=== PATIENT | female | born 2005 | race Caucasian/White ===

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

== ENCOUNTER → 2024-06-16 | Outpatient (CLI) | payer OTHER, SELFPAY ==
[2024-06-16 18:51] LABS: Ferritin 81 ng/mL (22-378)
[2024-06-16 20:02] LABS: PTHIN 28 pg/mL (11-61)
[2024-06-17 17:14] LABS: Calcium 9.6 mg/dL (7.6-11.0)
[2024-06-18 04:07] LABS: Thyroid Peroxidase AB 36 IU/mL (0-34)
== END | disposition home or self-care (01) ==
PROVIDERS: PCP Pediatrics; Referring Provider Dermatology Pediatric Dermatology; Visit Provider Dermatology Pediatric Dermatology
DX: L67.8 Other hair color and hair shaft abnormalities (principal); D89.89 Other specified disorders involving the immune mechanism, not elsewhere classified
CPT/HCPCS: 36415; 82310; 82728; 83970; 84439; 84443; 84481; 86376

== ENCOUNTER → 2024-09-29 | Outpatient (CLI) | payer OTHER, SELFPAY ==
[2024-09-29 15:27] LABS: Hematocrit 43.8 % (37-47); Hemoglobin 14.5 g/dL (12.0-15.0); Immature Granulocytes Count 0.010 X10^3/uL (0.0-0.0); Mean Corp Hgb Conc 33.1 g/dL (32-36); Mean Corpuscular Volume 93.6 fL (81-99); Mean Platelet Vol. 10.7 fl (6.2-12.0); NRBC Flagged by Analyzer 0 % (0-5); Platelet Count 208 K/mm3 (150-450); RBC Distribution Width CV 12.5 % (11.6-14.6); RBC Distribution Width SD 43.3 fl (35.1-43.9); Red Blood Count 4.68 M/mm3 (4.2-5.4); White Blood Count 5.4 K/mm3 (4.4-11.0)
[2024-09-29 16:15] LABS: AST(SGOT) 14 U/L (<=31); Alanine Aminotransfer ALT/SGPT 12 U/L (<=34); Albumin, Serum 4.6 g/dL (3.5-5.0); Alkaline Phosphatase 29 U/L (35-104); Anion Gap 12 (5-15); BUN 11 mg/dL (4-19); BUN/Creat Ratio 14.0 RATIO (10-20); Calcium,Total 9.5 mg/dL (7.6-11.0); Carbon Dioxide 24.9 mmol/L (21.0-32.0); Chloride 104 mmol/L (98-108); Ferritin 79 ng/mL (22-378); Globulin 2.9 g/dL (2.2-4.2); Glucose 85 mg/dL (70-99); Iron 102 ug/dL (50-170); Iron Binding Capacity,Total 303 ug/dL (250-450); Iron Binding Capacity,Unsat 201 ug/dL (228-428); Potassium 3.7 mmol/L (3.3-5.1); T3 Total - Triiodothyronine 0.90 ng/mL (0.80-2.00)
[2024-09-29 18:28] LABS: Color, Urine Yellow (Yellow); Glucose, Dipstick Normal (Normal); Ketone-Dipstick Negative (Negative); Leukocyte Esterase-Dipstick Negative /ul (Negative); Nitrite-Dipstick Negative (Negative); Occult Blood-Urine Negative /ul (Negative); Protein-Dipstick Negative (Negative); Specific Gravity, Urine 1.015 (1.002-1.030); Urine Bilirubin Dipstick Negative (Negative)
[2024-09-29 19:15] LABS: Creatinine, Urine (random) 183.00 mg/dL (28.00-217.00); Microalbumin,Random Urine < 12.0 mg/L (<20 mg/L)
[2024-10-02 16:09] LABS: Thyroid Stim Immunoglob <0.10 IU/L (0.00-0.55)
== END | disposition home or self-care (01) ==
LOC: MFPLAB 13:35
PROVIDERS: PCP Pediatrics; Visit Provider Family Medicine
DX: Z13.1 Encounter for screening for diabetes mellitus (principal); R53.83 Other fatigue; R76.8 Other specified abnormal immunological findings in serum
CPT/HCPCS: 36415; 80053; 81002; 82043; 82570; 82728; 83540; 83550; 84439; 84443; 84445; 84480; 85025

== ENCOUNTER → 2025-01-21 | Outpatient (CLI) | payer OTHER, SELFPAY ==
--- OUTSIDE RECORDS SUMMARY | 2025-01-21 16:46 | XMS RPT_ITS | CCD ---
Author Organization [facility] Care Team Providers Care Dental Intern Name Role Phone Andrew Lloyd MD Primary Care Provider [phone] Moo CHOUDHURY, Dr. Bowens Primary Care Provider Aj CHOUDHURY, Dr. Wolf Attending Provider Aj CHOUDHURY, Dr. Wolf Referring Provider [phone] Moo CHOUDHURY, Dr. Bowens Referring Provider Jacqueline CHOCOLATE TEMPERER-CAziza Attending Provider [phone] Apurva CHOUDHURY, Warren Attending Provider Aziza Phillips Attending Unavailable Andrew Lloyd Referring Unavailable Andrew Lloyd Primary Care Unavailable Andrew Lloyd Primary Care Unavailable Warren Mixon Attending Unavailable Maryann Rocha Referring Unavailable Maryann Rocha Attending Unavailable Andrew Lloyd Primary Care Unavailable Medications Current Medications Medication Drug Class(es) Dates Sig (Normalized) Sig (Original) Keo (Nk) (2 sources) Start: 07-24-2024 Keo (Nk) A ctive July 24, 2024 12:00am Completed/Discontinued Medications Medication Drug Class(es) Dates Sig (Normalized) Sig (Original) oseltamivir 75 mg oral capsule (4 sources) Neuraminidase Inhibitor Start: 05-07-2017 End: 05-12-2017 take 1 capsule by mouth twice daily Oseltamivir (Tamiflu) 75 mg capsule Discontinued 75 mg PO TWICE A DAY 10 5 0 May 07, 2017 12:00am May 11, 2017 12:00am May 12, 2017 12:11am Problems Active Problems Problem Classification Problem Date Documented Da te Episodic/Chronic Other screening for suspected conditions (not mental disorders or infectious disease) (1 source) Encounter for screening for diabetes mellitus; Translations: [Encounter for screening for diabetes mellitus] Onset: 10-07-2024 Episodic Other upper respiratory infections (8 sources) Upper respiratory infection; Translations: [Acute upper respiratory infection, unspecified] 05-09-2017 Episodic Past or Other Problems Problem Classification Problem Date Documented Da te Episodic/Chronic Other skin disorders (1 source) Other hair color and hair shaft abnormalities; Translations: [Other hair color and hair shaft abnormalities] Onset: 06-19-2024 Episodic Results Test Name Value Interpretation Reference Range Facility Thyroid Stim Immunoglobon THY STIM IMMUNO <0.10 Normal 0.00-0.55 [facility] Comment on above: Result Comment: Perf ormed at: BN - [facility] [address] [id number] [employer]: Humberto Faye MD, Phone: [phone] Performed By: #### L 506.0400, L503.6030, L400.2011, L3400.4700, L500.4050, L501.9520, L501.9187, L502.0250, L503.6550, L100.0100 #### [facility] [address] [place], [address] Absolute lymphocyte countOrd ered By: Warren Mixon on 09-29-2024 Lymphocytes Auto (Unsp spec) [#/Vol] 1.96 10*3/uL 0.83-4.51 [facility] Absolute neutrophil countOrd ered By: Warren Mixon on 09-29-2024 Neutrophils (Bld) [#/Vol] 2.9 10*3/uL 2.0-7.7 [facility] Anion gap in Serum or Plasma Ordered By: Warren Mixon on 09-29-2024 Anion gap [Moles/Vol] 12 mmol/L 5-15 [facility] Automated lymphocyte count a s percentage of total leukocytesOrdered By: Warren Mixon on 09-29-2024 Lymphocytes/100 WBC Auto (Unsp spec) 36.1 % - [facility] BUN/creatinine ratioOrdered By: Warren Mixon on 09-29-2024 Urea nitrogen/Creatinine [Mass ratio] 14.0 mg/mg 10-20 [facility] Basophil percentageOrdered B y: Warren Mixon on 09-29-2024 Basophils/100 WBC (Bld) 0.9 % 0-1 [facility] Bilirubin Test strip Ql (U)O rdered By: Warren Mixon on 09-29-2024 Bilirubin Ql (U) Negative Negative [facility] Bilirubin, totalOrdered By: Warren Mixon on 09-29-2024 Bilirubin [Mass/Vol] 0.59 mg/dL 0.00-1.30 [place] CBC W/Diff, Automatedon Absolute Lymph 1.96 X10 3/uL Normal 0.83-4.51 [facility] Comment on above: Performed By: #### L 506.0400, L503.6030, L400.2010, L3400.4700, L500.4050, L501.9520, L501.9187, L502.0250, L503.6550, L100.0100 #### [facility] [address] [place], [address] Absolute Neut 2.9 X10 3/uL Normal 2.0-7.7 [facility] Comment on above: Performed By: #### L 506.0400, L503.6030, L400.2010, L3400.4700, L500.4050, L501.9520, L501.9187, L502.0250, L503.6550, L100.0100 #### [facility] [address] [place], [address] Basophils/100 WBC (Bld) 0.9 % Normal 0-1 [facility] Comment on above: Performed By: #### L 506.0400, L503.6030, L400.2010, L3400.4700, L500.4050, L501.9520, L501.9187, L502.0250, L503.6550, L100.0100 #### [facility] [address] [place], [address] Eosinophils/100 WBC (Bld) 0.7 % Normal 0-5 [facility] Comment on above: Performed By: #### L 506.0400, L503.6030, L400.2011, L3400.4700, L500.4050, L501.9520, L501.9187, L502.0250, L503.6550, L100.0100 #### [facility] [address] [facility] [place], [address] Erythrocyte distribution width (RBC) [Ratio] 12.5 % Normal 11.6-14.6 [facility] Comment on above: Performed By: #### L 506.0400, L503.6030, L400.2010, L3400.4700, L500.4050, L501.9520, L501.9187, L502.0250, L503.6550, L100.0100 #### [facility] [address] [place], [place], [phone] Hematocrit (Bld) [Volume fraction] 43.8 % Normal 37-47 [facility] Comment on above: Performed By: #### L 506.0400, L503.6030, L400.2010, L3400.4700, L500.4050, L501.9520, L501.9187, L502.0250, L503.6550, L100.0100 #### [facility] [address] [place], [address] Hemoglobin (Bld) [Mass/Vol] 14.5 g/dL Normal 12.0-15.0 [facility] Comment on above: Performed By: #### L 506.0400, L503.6030, L400.2010, L3400.4700, L500.4050, L501.9520, L501.9187, L502.0250, L503.6550, L100.0100 #### [facility] [address] [place], [address] IG% 0.200 Normal 0.0-0.9 [facility] Comment on above: Result Comment: IG% - Immature Granulocytes (promyelocytes, myelocytes and metamyelocytes) > 1% indicates that a LEFT SHIFT is Present. Performed By: #### L 506.0400, L503.6030, L400.2011, L3400.4700, L500.4050, L501.9520, L501.9187, L502.0250, L503.6550, L100.0100 #### [facility] [address] [place], [address] Lymphocytes/100 WBC (Bld) 36.1 % Normal 19-41 [facility] Comment on above: Performed By: #### L 506.0400, L503.6030, L400.2010, L3400.4700, L500.4050, L501.9520, L501.9187, L502.0250, L503.6550, L100.0100 #### [facility] [address] [place], [address] MCH (RBC) [Entitic mass] 31.0 pg Normal 27.0-32.0 [facility] Comment on above: Performed By: #### L 506.0400, L503.6030, L400.2010, L3400.4700, L500.4050, L501.9520, L501.9187, L502.0250, L503.6550, L100.0100 #### [facility] [address] [place], [address] MCHC (RBC) [Mass/Vol] 33.1 g/dL Normal 32-36 [facility] Comment on above: Performed By: #### L 506.0400, L503.6030, L400.2010, L3400.4700, L500.4050, L501.9520, L501.9187, L502.0250, L503.6550, L100.0100 #### [facility] [address] [place], [address] MCV (RBC) [Entitic vol] 93.6 fL Normal 81-99 [facility] Comment on above: Performed By: #### L 506.0400, L503.6030, L400.2010, L3400.4700, L500.4050, L501.9520, L501.9187, L502.0250, L503.6550, L100.0100 #### [facility] [address] [place], [address] Monocytes/100 WBC (Bld) 8.8 % Normal 0-10 [facility] Comment on above: Performed By: #### L 506.0400, L503.6030, L400.2010, L3400.4700, L500.4050, L501.9520, L501.9187, L502.0250, L503.6550, L100.0100 #### [facility] [address] [place], [address] Neutrophils/100 WBC (Bld) 53.3 % Normal 47-70 [facility] Comment on above: Performed By: #### L 506.0400, L503.6030, L400.2010, L3400.4700, L500.4050, L501.9520, L501.9187, L502.0250, L503.6550, L100.0100 #### [facility] [address] [place], [address] Nucleated RBC (Bld) [#/Vol] 0 10*3/uL Normal 0-5 [facility] Comment on above: Performed By: #### L 506.0400, L503.6030, L4.2010, L3400.4700, L500.4050, L501.9520, L501.9187, L502.0250, L503.6550, L100.0100 #### [facility] [address] [place], [address] Platelet mean volume (Bld) [Entitic vol] 10.7 fL Normal 6.2-12.0 [facility] Comment on above: Performed By: #### L 506.0400, L503.6030, L400.2011, L3400.4700, L500.4050, L501.9520, L501.9187, L502.0250, L503.6550, L100.0100 #### [facility] [address] [place], [address] Platelets (Bld) [#/Vol] 208 10*3/uL Normal 150-450 [facility] Comment on above: Performed By: #### L 506.0400, L503.6030, L400.2010, L3400.4700, L500.4050, L501.9520, L501.9187, L502.0250, L503.6550, L100.0100 #### [facility] [address] [place], [address] RBC (Bld) [#/Vol] 4.68 10*6/uL Normal 4.2-5.4 [facility] Comment on above: Performed By: #### L 506.0400, L503.6030, L400.2010, L3400.4700, L500.4050, L501.9520, L501.9187, L502.0250, L503.6550, L100.0100 #### [facility] [address] [place], [address] RDW SD 43.3 fl Normal 35.1-43.9 [facility] Comment on above: Performed By: #### L 506.0400, L503.6030, L400.2010, L3400.4700, L500.4050, L501.9520, L501.9187, L502.0250, L503.6550, L100.0100 #### [facility] [address] [place], [address] WBC (Bld) [#/Vol] 5.4 10*3/uL Normal 4.4-11.0 [facility] Comment on above: Performed By: #### L 506.0400, L503.6030, L400.2010, L3400.4700, L500.4050, L501.9520, L501.9187, L502.0250, L503.6550, L100.0100 #### [facility] [address] [place], [address] Carbon dioxide, total [Moles /volume] in Central venous bloodOrdered By: Warren Mixon on 09-29-2024 CO2 [Moles/Vol] 24.9 mmol/L 21.0-32.0 [facility] Chloride assayOrdered By: Jimbo Mixon on 09-29-2024 Chloride [Moles/Vol] 104 mmol/L 98-108 [place] [facility] Metabolic Prof ilon 09-29-2024 Albumin [Mass/Vol] 4.6 g/dL Normal 3.5-5.0 [facility] Comment on above: Performed By: #### L 506.0400, L503.6030, L4.2010, L3400.4700, L500.4050, L501.9520, L501.9187, L502.0250, L503.6550, L100.0100 #### [facility] [address] [place], [address] Albumin/Globulin [Mass ratio] 1.6 {ratio} Normal 0.9-2.4 [facility] Comment on above: Performed By: #### L 506.0400, L503.6030, L400.2010, L3400.4700, L500.4050, L501.9520, L501.9187, L502.0250, L503.6550, L100.0100 #### [facility] [address] [place], [address] ALK PHOS 29 U/L Low 35-104 [facility] Comment on above: Performed By: #### L 506.0400, L503.6030, L4, L3400.4700, L500.4050, L501.9520, L501.9187, L502.0250, L503.6550, L100.0100 #### [facility] [address] [place], [place], [phone] ALT [Catalytic activity/Vol] 12 U/L Normal <=34 [facility] Comment on above: Performed By: #### L 506.0400, L503.6030, L400.2010, L3400.4700, L500.4050, L501.9520, L501.9187, L502.0250, L503.6550, L100.0100 #### [facility] [address] [place], [address] AST [Catalytic activity/Vol] 14 U/L Normal <=31 [facility] Comment on above: Performed By: #### L 506.0400, L503.6030, L4, L3400.4700, L500.4050, L501.9520, L501.9187, L502.0250, L503.6550, L100.0100 #### [facility] [address] [place], [place], [phone] Bilirubin [Mass/Vol] 0.59 mg/dL Normal 0.00-1.30 [place] Comment on above: Performed By: #### L 506.0400, L503.6030, L4, L3400.4700, L500.4050, L501.9520, L501.9187, L502.0250, L503.6550, L100.0100 #### [facility] [address] [place], [address] BUN/CRE 14.0 RATIO Normal 10-20 [facility] Comment on above: Performed By: #### L 506.0400, L503.6030, L4, L3400.4700, L500.4050, L501.9520, L501.9187, L502.0250, L503.6550, L100.0100 #### [facility] [address] [place], [address] Calcium [Mass/Vol] 9.5 mg/dL Normal 7.6-11.0 [facility] Comment on above: Performed By: #### L 506.0400, L503.6030, L400.2010, L3400.4700, L500.4050, L501.9520, L501.9187, L502.0250, L503.6550, L100.0100 #### [facility] [address] [place], [address] Chloride [Moles/Vol] 104 mmol/L Normal 98-108 [place] Comment on above: Performed By: #### L 506.0400, L503.6030, L4, L3400.4700, L500.4050, L501.9520, L501.9187, L502.0250, L503.6550, L100.0100 #### [facility] [address] [place], [address] CO2 [Moles/Vol] 24.9 mmol/L Normal 21.0-32.0 [facility] Comment on above: Performed By: #### L 506.0400, L503.6030, L4.2010, L3400.4700, L500.4050, L501.9520, L501.9187, L502.0250, L503.6550, L100.0100 #### [facility] [address] [place], [address] Creatinine [Mass/Vol] 0.81 mg/dL Normal 0.70-1.20 [facility] Comment on above: Performed By: #### L 506.0400, L503.6030, L4.2010, L3400.4700, L500.4050, L501.9520, L501.9187, L502.0250, L503.6550, L100.0100 #### [facility] [address] [place], [address] GAP 12 Normal 5-15 [facility] Comment on above: Performed By: #### L 506.0400, L503.6030, L4.2010, L3400.4700, L500.4050, L501.9520, L501.9187, L502.0250, L503.6550, L100.0100 #### [facility] [address] [place], [address] GFR/1.73 sq M.predicted among non-blacks MDRD (S/P/Bld) [Vol rate/Area] 107 mL/min/{1.73_m2} Normal >60 [facility] Comment on above: Result Comment: mL/m in/1.73m2 CKD-EPI Creatinine Equation (2020) Performed By: #### L 506.0400, L503.6030, L4, L3400.4700, L500.4050, L501.9520, L501.9187, L502.0250, L503.6550, L100.0100 #### [facility] [address] [place], [address] Globulin (S) [Mass/Vol] 2.9 g/dL Normal 2.2-4.2 [facility] Comment on above: Performed By: #### L 506.0400, L503.6030, L4.2010, L3400.4700, L500.4050, L501.9520, L501.9187, L502.0250, L503.6550, L100.0100 #### [facility] [address] [place], [address] Glucose [Mass/Vol] 85 mg/dL Normal 70-99 [facility] Comment on above: Performed By: #### L 506.0400, L503.6030, L4, L3400.4700, L500.4050, L501.9520, L501.9187, L502.0250, L503.6550, L100.0100 #### [facility] [address] [place], [address] Potassium [Moles/Vol] 3.7 mmol/L Normal 3.3-5.1 [facility] Comment on above: Performed By: #### L 506.0400, L503.6030, L400.2010, L3400.4700, L500.4050, L501.9520, L501.9187, L502.0250, L503.6550, L100.0100 #### [facility] [address] [place], [address] Sodium [Moles/Vol] 140 mmol/L Normal 133-145 [facility] Comment on above: Performed By: #### L 506.0400, L503.6030, L4.2010, L3400.4700, L500.4050, L501.9520, L501.9187, L502.0250, L503.6550, L100.0100 #### [facility] [address] [place], [address] T PROT 7.4 g/dL Normal 5.9-8.4 [facility] Comment on above: Performed By: #### L 506.0400, L503.6030, L4.2010, L3400.4700, L500.4050, L501.9520, L501.9187, L502.0250, L503.6550, L100.0100 #### [facility] [address] [facility] [place], [address] Urea nitrogen [Mass/Vol] 11 mg/dL Normal 4-19 [facility] Comment on above: Performed By: #### L 506.0400, L503.6030, L4, L3400.4700, L500.4050, L501.9520, L501.9187, L502.0250, L503.6550, L100.0100 #### [facility] [address] [place], [address] Eosinophil percentageOrdered By: Warren Apurva on 09-29-2024 Eosinophils/100 WBC (Bld) 0.7 % 0-5 [facility] Erythrocyte distribution wid th ratioOrdered By: Warren Mixon on 09-29-2024 Erythrocyte distribution width (RBC) [Ratio] 12.5 % 11.6-14.6 [facility] Erythrocyte distribution wid th standard deviationOrdered By: [facility] Apurva on 09-29-2024 Erythrocyte distribution width (RBC) [Ratio] 43.3 fl 35.1-43.9 [facility] Ferritinon 09-29-2024 Ferritin [Mass/Vol] 79 ng/mL Normal 22-378 [facility] Comment on above: Performed By: #### L 506.0400, L503.6030, L400.2011, L3400.4700, L500.4050, L501.9520, L501.9187, L502.0250, L503.6550, L100.0100 #### [facility] [address] [place], [place], [id number] Glomerular filtration rate ( GFR) estimation/1.73 sq m using serum, plasma, or whole bOrdered By: Warren Mixon on 09-29-2024 GFR/1.73 sq M.predicted among non-blacks MDRD (S/P/Bld) [Vol rate/Area] 107 mL/min/{1.73_m2} >60 [facility] Comment on above: mL/min/1.73m2 CKD-EP I Creatinine Equation (2020) Hematocrit Auto (Bld) [Volum e fraction]Ordered By: Warren Mixon on 09-29-2024 Hematocrit (Bld) [Volume fraction] 43.8 % 37-47 [facility] Hemoglobin measurementOrdere d By: Warren Mixon on 09-29-2024 Hemoglobin (Bld) [Mass/Vol] 14.5 g/dL 12.0-15.0 [facility] Immature granulocytes/100 WB C Auto (Bld)Ordered By: Warren Mixon on 09-29-2024 Immature granulocytes/100 WBC (Bld) 0.200 % 0.0-0.9 [facility] Comment on above: IG% - Immature Granu locytes (promyelocytes, myelocytes and metamyelocytes) > 1% indicates that a LEFT SHIFT is Present. Iron measurement (mass/mass) Ordered By: Warren Mixon on 09-29-2024 Iron (Unsp spec) [Mass/Mass] 102 ug/dL 50-170 [facility] Iron+Iron Binding Capacityon 09-29-2024 Iron [Mass/Vol] 102 ug/dL Normal 50-170 [facility] Comment on above: Performed By: #### L 506.0400, L503.6030, L400.2010, L3400.4700, L500.4050, L501.9520, L501.9187, L502.0250, L503.6550, L100.0100 #### [facility] [address] [place], [address] IRON SATURATION 34.0 Normal 13-59 [facility] Comment on above: Performed By: #### L 506.0400, L503.6030, L400.2010, L3400.4700, L500.4050, L501.9520, L501.9187, L502.0250, L503.6550, L100.0100 #### [facility] [address] [place], [address] TIBC 303 ug/dL Normal 250-450 [facility] Comment on above: Performed By: #### L 506.0400, L503.6030, L400.2010, L3400.4700, L500.4050, L501.9520, L501.9187, L502.0250, L503.6550, L100.0100 #### [facility] [address] [place], [address] UIBC 201 ug/dL Low 228-428 [facility] Comment on above: Performed By: #### L 506.0400, L503.6030, L400.2010, L3400.4700, L500.4050, L501.9520, L501.9187, L502.0250, L503.6550, L100.0100 #### [facility] [address] [place], [address] Ketones Test strip Ql (U)Ord ered By: Warren Mixon on 09-29-2024 Ketones Ql (U) Negative Negative [facility] L501.9187on 09-29-2024 T3 Total 0.90 ng/mL Normal 0.80-2.00 [facility] Comment on above: Performed By: #### L 506.0400, L503.6030, L400.2010, L3400.4700, L500.4050, L501.9520, L501.9187, L502.0250, L503.6550, L100.0100 #### [facility] [address] [facility] [place], [address] Laboratory - Chemistry and C hemistry - challengeOrdered By: Warren Mixon on 09-29-2024 AST [Catalytic activity/Vol] 14 U/L <32 [facility] MCV (mean corpuscular volume ) determinationOrdered By: Warren Mixon on 09-29-2024 MCV (RBC) [Entitic vol] 93.6 fL 81-99 [facility] Mean corpuscular hemoglobin (MCH) determinationOrdered By: Warren Mixon on 09-29-2024 MCH (RBC) [Entitic mass] 31.0 pg 27.0-32.0 [facility] Mean corpuscular hemoglobin concentration (MCHC) determinationOrdered By: Warren Mixon on 09-29-2024 MCHC (RBC) [Mass/Vol] 33.1 g/dL 32-36 [facility] Mean platelet volume determi nationOrdered By: Warren Mixon on 09-29-2024 Platelet mean volume (Bld) [Entitic vol] 10.7 fL 6.2-12.0 [facility] Microalb:Creat Ratio,Random URon 09-29-2024 Creatinine [Mass/Vol] 183.00 mg/dL Normal 28.00-217.00 [facility] Comment on above: Performed By: #### L 506.0400, L503.6030, L400.2010, L3400.4700, L500.4050, L501.9520, L501.9187, L502.0250, L503.6550, L100.0100 #### [facility] [address] [facility] [place], [place], [id number] MALB:CREAT UNABLE TO CALCULATE Normal <30 mg/g CRE [facility] Comment on above: Performed By: #### L 506.0400, L503.6030, L400.2010, L3400.4700, L500.4050, L501.9520, L501.9187, L502.0250, L503.6550, L100.0100 #### [facility] [address] [facility] [place], [place], [id number] MICROALBUMIN,UR < 12.0 Normal <20 mg/L [facility] Comment on above: Performed By: #### L 506.0400, L503.6030, L400.2010, L3400.4700, L500.4050, L501.9520, L501.9187, L502.0250, L503.6550, L100.0100 #### [facility] [address] [facility] [place], [place], [id number] Microalbumin/creat ratio urO rdered By: Warren Mixon on 09-29-2024 Urine microalbumin/creatinine ratio measurement UNABLE TO CALCULATE mg/g CRE <30 [facility] Monocyte percentageOrdered B y: Warren Mixon on 09-29-2024 Monocytes/100 WBC (Bld) 8.8 % 0-10 [facility] Neutrophil percentageOrdered By: Warren Mixon on 09-29-2024 Neutrophils/100 WBC (Bld) 53.3 % 47-70 [facility] Nitrite Test strip Ql (U)Ord ered By: Warren Mixon on 09-29-2024 Nitrite Ql (U) Negative Negative [facility] No Panel InformationOrdered By: Warren Mixon on 09-29-2024 Unsaturated Iron Binding Capacity 201 ug/dL Low 228-428 [facility] Nucleated red blood cell per centageOrdered By: Warren Mixon on 09-29-2024 Nucleated RBC/100 WBC (Bld) [Ratio] 0 % 0-5 [facility] Platelet countOrdered By: Jimbo Mixon on 09-29-2024 Platelets (Bld) [#/Vol] 208 10*3/uL 150-450 [facility] Potassium measurement (mass/ volume)Ordered By: Warren Mixon on 09-29-2024 Potassium (Unsp spec) [Mass/Vol] 3.7 mmol/L 3.3-5.1 [facility] Protein Test strip Ql (U)Ord ered By: Warren Mixon on 09-29-2024 Protein Ql (U) Negative Negative [facility] RBC Auto (Bld) [#/Vol]Ordere d By: Warren Mixon on 09-29-2024 RBC (Bld) [#/Vol] 4.68 10*6/uL 4.2-5.4 [facility] Random urine creatinine rolly urement (mass/volume)Ordered By: Warren Mixon on 09-29-2024 Creatinine Unsp time (U) [Mass/Vol] 183.00 mg/dL 28.00-217.00 [facility] Serum creatinine measurement (mass/volume)Ordered By: Warren Mixon on 09-29-2024 Creatinine [Mass/Vol] 0.81 mg/dL 0.70-1.20 [facility] Serum globulin measurementOr dered By: Warren Mixon on 09-29-2024 Globulin (S) [Mass/Vol] 2.9 g/dL 2.2-4.2 [facility] Serum glucose measurement (m ass/volume)Ordered By: Warren Mixon on 09-29-2024 Glucose [Mass/Vol] 85 mg/dL 70-99 [facility] Serum or plasma alanine urias otransferase (ALT) measurementOrdered By: Warren Mixon on 09-29-2024 ALT [Catalytic activity/Vol] 12 U/L <35 [facility] Serum or plasma albumin rolly urement (mass/volume)Ordered By: Warren Mixon on 09-29-2024 Albumin [Mass/Vol] 4.6 g/dL 3.5-5.0 [facility] Serum or plasma albumin/glob ulin mass ratioOrdered By: Warren Mixon on 09-29-2024 Albumin/Globulin [Mass ratio] 1.6 {ratio} 0.9-2.4 [facility] Serum or plasma alkaline donovan sphatase measurementOrdered By: Warren Mixon on 09-29-2024 ALP [Catalytic activity/Vol] 29 U/L Low 35-104 [facility] Serum or plasma calcium rolly urement (mass/volume)Ordered By: Warren Mixon on 09-29-2024 Calcium [Mass/Vol] 9.5 mg/dL 7.6-11.0 [facility] Serum or plasma ferritin kaelyn surement (mass/volume)Ordered By: Warren Mixon on 09-29-2024 Ferritin [Mass/Vol] 79 ng/mL 22-378 [facility] Serum or plasma iron saturat ion measurement (mass fraction)Ordered By: Warren Mixon on 09-29-2024 Iron saturation [Mass fraction] 34.0 % 13-59 [facility] Serum or plasma triiodothyro nine (T3) measurement (mass/volume)Ordered By: Warren Mixon on 09-29-2024 T3 [Mass/Vol] 0.90 ng/mL 0.80-2.00 [facility] Serum or plasma urea nitroge n measurement (mass/volume)Ordered By: Warren Mixon on 09-29-2024 Urea nitrogen [Mass/Vol] 11 mg/dL 4-19 [facility] Sodium levelOrdered By: Carmelita Mixon on 09-29-2024 Sodium [Moles/Vol] 140 mmol/L 133-145 [facility] T4 Free Directon 09-29-2024 T4 FREE DIRECT 1.10 ng/dL Normal 0.76-1.46 [facility] Comment on above: Order Comment: N Performed By: #### L 506.0400, L503.6030, L400.2010, L3400.4700, L500.4050, L501.9520, L501.9187, L502.0250, L503.6550, L100.0100 #### [facility] [address] [place], [address] T4 freeOrdered By: Warren harrison on 09-29-2024 Free T4 [Mass/Vol] 1.10 ng/dL 0.76-1.46 [facility] TSH DL <= 0.005 mIU/L QnOrde red By: Warren Mixon on 09-29-2024 TSH Qn 0.631 uIU/mL 0.300-4.200 [facility] Thyroid Stim Hormone (TSH)on 09-29-2024 TSH 0.631 uIU/mL Normal 0.300-4.200 [facility] Comment on above: Performed By: #### L 506.0400, L503.6030, L400, L3400.4700, L500.4050, L501.9520, L501.9187, L502.0250, L503.6550, L100.0100 #### [facility] [address] [place], [address] Thyroid stimulating immunogl obulins detectionOrdered By: Warren Mixon on 09-29-2024 Thyroid stimulating immunoglobulins Ql (S) <0.10 IU/L 0.00-0.55 [facility] Comment on above: Performed at: [address] [id number] Director: Humberto Faye MD, Phone: [phone] Total proteinOrdered By: Devika Mixon on 09-29-2024 Protein [Mass/Vol] 7.4 g/dL 5.9-8.4 [facility] Urinalysis, Routine (Dipstic k)on 09-29-2024 BILIRUBIN URINE Negative Normal Negative [facility] Comment on above: Order Comment: Urine , Random Performed By: #### L 506.0400, L503.6030, L4.2010, L3400.4700, L500.4050, L501.9520, L501.9187, L502.0250, L503.6550, L100.0100 #### [facility] [address] [place], [address] Clarity (U) Clear Normal Clear [facility] Comment on above: Order Comment: Urine , Random Performed By: #### L 506.0400, L503.6030, L400.2010, L3400.4700, L500.4050, L501.9520, L501.9187, L502.0250, L503.6550, L100.0100 #### [facility] [address] [place], [place], [id number] Color (U) Yellow Normal Yellow [facility] Comment on above: Order Comment: Urine , Random Performed By: #### L 506.0400, L503.6030, L4.2010, L3400.4700, L500.4050, L501.9520, L501.9187, L502.0250, L503.6550, L100.0100 #### [facility] [address] [place], [place], [id number] [phone] GLUCOSE, UR Normal Normal Normal [facility] Comment on above: Order Comment: Urine , Random Performed By: #### L 506.0400, L503.6030, L400.2010, L3400.4700, L500.4050, L501.9520, L501.9187, L502.0250, L503.6550, L100.0100 #### [facility] [address] [place], [address] KETONE UR Negative Normal Negative [facility] Comment on above: Order Comment: Urine , Random Performed By: #### L 506.0400, L503.6030, L400.2010, L3400.4700, L500.4050, L501.9520, L501.9187, L502.0250, L503.6550, L100.0100 #### [facility] [address] [place], [address] LEUK ESTERASE Negative Normal Negative [facility] Comment on above: Order Comment: Urine , Random Performed By: #### L 506.0400, L503.6030, L400.2010, L3400.4700, L500.4050, L501.9520, L501.9187, L502.0250, L503.6550, L100.0100 #### [facility] [address] [place], [address] Nitrite Ql (U) Negative Normal Negative [facility] Comment on above: Order Comment: Urine , Random Performed By: #### L 506.0400, L503.6030, L4.2010, L3400.4700, L500.4050, L501.9520, L501.9187, L502.0250, L503.6550, L100.0100 #### [facility] [address] [place], [address] OCCULT BLOOD-UR Negative Normal Negative [facility] Comment on above: Order Comment: Urine , Random Performed By: #### L 506.0400, L503.6030, L4.2010, L3400.4700, L500.4050, L501.9520, L501.9187, L502.0250, L503.6550, L100.0100 #### [facility] [address] [place], [address] pH UR 7.0 Normal 5.0 - 8.0 [facility] Comment on above: Order Comment: Urine , Random Performed By: #### L 506.0400, L503.6030, L4.2010, L3400.4700, L500.4050, L501.9520, L501.9187, L502.0250, L503.6550, L100.0100 #### [facility] [address] [place], [address] PROT DIPSTX Negative Normal Negative [facility] Comment on above: Order Comment: Urine , Random Performed By: #### L 506.0400, L503.6030, L400.2010, L3400.4700, L500.4050, L501.9520, L501.9187, L502.0250, L503.6550, L100.0100 #### [facility] [address] [place], [place], [id number] SP.GR. DIPSTX 1.015 Normal 1.002-1.030 [facility] Comment on above: Order Comment: Urine , Random Performed By: #### L 506.0400, L503.6030, L400.2010, L3400.4700, L500.4050, L501.9520, L501.9187, L502.0250, L503.6550, L100.0100 #### [facility] [address] [place], [place], [id number] UROBILI Normal Normal Normal [facility] Comment on above: Order Comment: Urine , Random Performed By: #### L 506.0400, L503.6030, L4.2010, L3400.4700, L500.4050, L501.9520, L501.9187, L502.0250, L503.6550, L100.0100 #### [facility] [address] [place], [place], [id number] Urine albumin measurement [facility] detection limit of 20 mg/L or less (mass/volume)Ordered By: Warren Mixon on 09-29-2024 Albumin DL <= 20 mg/L (U) [Mass/Vol] < 12.0 mg/L <20 mg/L [facility] Urine clarityOrdered By: Devika Mixon on 09-29-2024 Clarity (U) Clear Clear [facility] Urine color determinationOrd ered By: Warren Mixon on 09-29-2024 Color (U) Yellow Yellow [facility] Urine glucose detectionOrder ed By: Warren Mixon on 09-29-2024 Glucose Ql (U) Normal mg/dl Normal [facility] Urine leukocyte esterase det ection by dipstickOrdered By: Warren Mixon on 09-29-2024 Leukocyte esterase Test strip Ql (U) Negative Negative [facility] Urine pHOrdered By: Warren blakely on 09-29-2024 pH (U) 7.0 [pH] 5.0 - 8.0 [facility] Urine specific gravity measu rementOrdered By: Warren Mixon on 09-29-2024 Specific gravity (U) [Rel density] 1.015 1.002-1.030 [facility] Urine urobilinogen measureme ntOrdered By: Warren Mixon on 09-29-2024 Urobilinogen Ql (U) Normal mg/dl Normal [facility] White blood cell (WBC) count Ordered By: Warren Mixon on 09-29-2024 WBC (Bld) [#/Vol] 5.4 10*3/uL 4.4-11.0 [facility] Warper Tender Office Visit Reporton 07-24-2024 Warper Tender Office Visit Report [facility] [address], [address] [place] [address] OFFICE VISIT Date of Service: 07/24/24 MR#: [id number] Acct: [id number] Name: DARIAN CAMPBELL Rep #: [id number] : 2005 Provider: PABLO Heath Age/Sex: 19/F Location[place] [facility] [place] Status: Signed Intake Vital Signs 05/09/17 09:26 07/24/24 09:45 Height 5 ft 10 in 5 ft 11 in Weight: 183 lb BMI 25.5 BP 104/66 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 sexually active: No Smoking Status: Never smoker alcohol intake: never substance use type: does not use what type of physical activity do you participate in: running, weight training and other details: tennis frequency: daily gisella/gnosticism: Jewish seatbelt use: always do you feel safe at home: Yes additional social history: Single History 0 Elective abortions Hx Para Spontaneous abortions Hx # Term Pregnancies Ectopic pregnancies Hx # Pregnancies Multiple births # of living children HPI Encounter for routine gynecological examination Details: DARIAN CAMBPELL is a 19 year old who presents for annual exam. She reports no issues or concerns. She is here to establish. Not currently or never has been sexually active. She does not use tampons. Currently on menses Last PAP: age 20 History of abnormal PAP: n/a Last mammogram: age 39 History of abnormal mammogram: n/a Colon cancer screening: age 44 Other preventative health care screenings: no PCP currently. Female Reproductive History Last Menstrual Period: 07/21/24 Cycle Length: 21-35 Bleeding Duration: 5 Questions: metorrhagia: No, sexually active: No, dyspareunia: No and PCB: No ROS Const Constitutional: Denies chills, fatigue, fever(s), headache(s) or weight loss Eyes Eyes: Denies change in vision ENT ENT: Denies dizziness Resp Resp: Denies cough GI GI: Denies abdominal pain, constipation or nausea : Denies difficulty voiding, dysuria, hematuria, nipple discharge, pelvic pain, prolapse symptoms, urinary incontinence, vaginal discharge, vaginal dryness, vaginal odor or vaginal pruritus Skin Skin/Breast: Denies alopecia, rash, breast mass, breast pain, breast skin changes or nipple discharge Neuro Neuro: Denies dizziness Psych Psych: Denies anxiety or depression Endo Endo: Denies cold intolerance, excessive sweating or heat intolerance Exam Const General: cooperative, healthy appearing, comfortable, no acute distress, well groomed and well hydrated Nutritional Appearance: well nourished Orientation: alert, awake and oriented x3 HENMT Head: normal to inspection and normocephalic Ears: hearing grossly normal bilaterally and external ears normal Nose: external nose normal Face and sinus: normal facial exam Eyes General: appearance normal, both eyes and all related structures Neck Neck: normal visual inspection, full ROM and no lymphadenopathy Thyroid: thyroid normal Chest Chest palpation inspection: normal inspection of the chest Breast inspection: normal inspection of the breasts and normal inspection of the axillae Breast palpation: normal palpation of the breasts, normal palpation of the axillae and no axillary lymphadenopathy Resp Effort Inspection: normal respiratory effort, able to speak in complete sentences and symmetric chest movement GI Inspection: normal to inspection Palpation: soft and no hepatosplenomegaly External Female Exam: normal external appearance and normal appearance of the urethra Urethra: normal appearance of the urethra and other (external exam only) Skin General: no rashes or lesions noted Neuro General: patient alert, patient awake, patient oriented x3 and moves all extremities Psych Appearance: grossly normal Mental Status: mental status grossly normal Affect: normal affect Speech and Movement: speech and movement normal Attitude: cooperative Coding Level of Care Code New Pt Off vis,new,prev (more content not included)... Normal [facility] Thyroid Peroxidase ABon - THYR PEROX AB 36 IU/mL High 0-34 [facility] Comment on above: Result Comment: Perf ormed at: - [facility] [address] [id number] Aircraft Cabin Cleaner: Joseph Bernabe PhD, Phone: [phone] Performed By: #### L 506.0400, L503.8335, L400.2010, L3400.4700, L500.4050, L501.9520, L501.9187, L502.0250, L503.5650, L100.0100 #### [facility] [address] [place], [place], [address] L501.0895on 06-17-2024 Calcium [Mass/Vol] 9.6 mg/dL Normal 7.6-11.0 [facility] Comment on above: Performed By: #### L 506.0400, L503.6030, L400.2010, L3400.4700, L500.4050, L501.9520, L501.9187, L502.0250, L503.6550, L100.0100 #### [facility] [address] [place], [address] Ferritinon 06-16-2024 Ferritin [Mass/Vol] 81 ng/mL Normal 22-378 [facility] Comment on above: Performed By: #### L 506.0400, L503.6030, L400.2010, L3400.4700, L500.4050, L501.9520, L501.9187, L502.0250, L503.6550, L100.0100 #### [facility] [address] [place], [address] Free T3on 06-16-2024 Free T3 [Mass/Vol] 3.0 pg/mL Normal 2.18-3.98 [facility] Comment on above: Performed By: #### L 506.0400, L503.6030, L4.2010, L3400.4700, L500.4050, L501.9520, L501.9187, L502.0250, L503.6550, L100.0100 #### [facility] [address] [place], [address] Free [id number] By: Andrew abernathy on 06-16-2024 Free T3 [Mass/Vol] 3.0 pg/mL 2.18-3.98 [facility] PTHINon 06-16-2024 PTH 28 pg/mL Normal 11-61 [facility] Comment on above: Performed By: #### L 506.0400, L503.6030, L400.2010, L3400.4700, L500.4050, L501.9520, L501.9187, L502.0250, L503.6550, L100.0100 #### [facility] [address] [place], [place], [address] Serum or plasma calcium rolly urement (mass/volume)Ordered By: Andrew Lloyd on 06-16-2024 Calcium [Mass/Vol] 9.6 mg/dL 7.6-11.0 [facility] Serum or plasma ferritin kaelyn surement (mass/volume)Ordered By: Andrew Lloyd on 06-16-2024 Ferritin [Mass/Vol] 81 ng/mL 22-378 [facility] Serum or plasma thyroperoxid ase antibody assay (units/volume)Ordered By: Andrew Lloyd on 06-16-2024 TPO Ab Qn 36 [IU]/mL High 0-34 [facility] Comment on above: Performed at: [place] [id number] Director: Joseph Bernabe PhD, Phone: [phone] T4 Free Directon 06-16-2024 T4 FREE DIRECT 1.20 ng/dL Normal 0.76-1.46 [facility] Comment on above: Performed By: #### L 506.0400, L503.6030, L4, L3400.4700, L500.4050, L501.9520, L501.9187, L502.0250, L503.6550, L100.0100 #### [facility] [address] [place], [place], [id number] T4 freeOrdered By: Andrew abernathy on 06-16-2024 Free T4 [Mass/Vol] 1.20 ng/dL 0.76-1.46 [facility] TSH DL <= 0.005 mIU/L QnOrde red By: Andrew Lloyd on 06-16-2024 TSH Qn 1.250 uIU/mL 0.300-4.200 [facility] Thyroid Stim Hormone (TSH)on 06-16-2024 TSH 1.250 uIU/mL Normal 0.300-4.200 [facility] Comment on above: Performed By: #### L 506.0400, L503.6030, L4.2010, L3400.4700, L500.4050, L501.9520, L501.9187, L502.0250, L503.6550, L100.0100 #### [facility] [address] [place], [address] Laboratory - Chemistry and C hemistry - challengeOrdered By: Cristine Holder on 02-24-2023 Cobalamin (Vitamin B12) [Mass/Vol] 439 pg/mL 211-911 [facility] Magnesium [Mass/Vol] 2.2 mg/dL 1.6-2.6 [place] No Panel InformationOrdered By: Cristine Holder on 02-24-2023 Vitamin D 25-Hydroxy 35.0 ng/mL [place] Comment on above: Vitamin D 25(OH) Sta tus Range Deficiency <20 ng/mL (50nmol/L) Insufficiency 20 - 30 ng/mL (50 - 75 nmol/L) Sufficiency 30 - 100 ng/mL (75 - 250 nmol/L) Toxicity >100 ng/mL (>250 nmol/L) Absolute lymphocyte countOrd ered By: Cristine Holder on 02-05-2023 Lymphocytes Auto (Unsp spec) [#/Vol] 2.79 10*3/uL 0.83-4.51 [facility] Basophil percentageOrdered B y: Cristine Holder on 02-05-2023 Basophils/100 WBC (Bld) 0.8 % 0-1 [facility] Bilirubin [Mass/Vol] 0.50 mg/dL 0.20-1.00 [place] Comment on above: For patients on eltr ombopag therapy, use of Dimension [place] TBIL is not recommended. Chloride [Moles/Vol] 102 mmol/L 98-107 [place] Eosinophils/100 WBC (Bld) 0.4 % 0-3 [facility] Glucose [Mass/Vol] 69 mg/dL 74-106 [facility] Neutrophils (Bld) [#/Vol] 5.4 10*3/uL 2.0-7.7 [facility] Neutrophils/100 WBC (Bld) 60.1 % 34-64 [facility] Potassium [Moles/Vol] 3.8 mmol/L 3.5-5.1 [facility] Protein [Mass/Vol] 8.1 g/dL 6.4-8.2 [facility] Sodium [Moles/Vol] 139 mmol/L 136-145 [facility] WBC (Bld) [#/Vol] 9.1 10*3/uL 4.5-13.0 [facility] Blood erythrocytes count (nu mber/volume)Ordered By: Cristine Holder on 02-05-2023 RBC (Bld) [#/Vol] 4.90 10*6/uL 4.1-4.8 [facility] Blood hemoglobin measurement (mass/volume)Ordered By: Cristine Holder on 02-05-2023 Hemoglobin (Bld) [Mass/Vol] 14.8 g/dL 12.0-15.0 [facility] Blood lymphocytes/100 leukoc ytesOrdered By: Cristine Holder on 02-05-2023 Lymphocytes/100 WBC (Bld) 30.8 % 25-45 [facility] Blood monocytes/100 leukocyt esOrdered By: Cristine Holder on 02-05-2023 Monocytes/100 WBC (Bld) 7.6 % 3-6 [facility] Blood platelet mean volumeOr dered By: Cristine Holder on 02-05-2023 Platelet mean volume (Bld) [Entitic vol] 10.6 fL 6.2-12.0 [facility] Determination of erythrocyte mean corpuscular volume (MCV)Ordered By: Cristine Holder on 02-05-2023 MCV (RBC) [Entitic vol] 91.6 fL 78-96 [facility] Hematocrit Auto (Bld) [Volum e fraction]Ordered By: Cristine Holder on 02-05-2023 Hematocrit (Bld) [Volume fraction] 44.9 % 37-46 [facility] Iron measurement (mass/mass) Ordered By: Cristine Holder on 02-05-2023 Iron (Unsp spec) [Mass/Mass] 65 ug/dL 50-170 [facility] - Chemistry and C hemistry - challengeOrdered By: Cristine Holder on 02-05-2023 ALP [Catalytic activity/Vol] 29 U/L 47-119 [facility] ALT [Catalytic activity/Vol] 13 U/L 13-56 [facility] CO2 [Moles/Vol] 32.0 mmol/L 21.0-32.0 [facility] Cobalamin (Vitamin B12) [Mass/Vol] 384 pg/mL 211-911 [facility] Free T4 [Mass/Vol] 0.98 ng/dL 0.76-1.46 [facility] Globulin (S) [Mass/Vol] 3.9 g/dL 2.2-4.2 [facility] Urea nitrogen/Creatinine [Mass ratio] 12.8 mg/mg 10-20 [facility] - Hematology and Cell countsOrdered By: Cristine Holder on 02-05-2023 Erythrocyte distribution width (RBC) [Entitic vol] 38.3 fL 35.1-43.9 [facility] Erythrocyte distribution width (RBC) [Ratio] 11.4 % 11.6-14.6 [facility] Immature granulocytes/100 WBC (Bld) 0.300 % 0.0-0.9 [facility] Comment on above: IG% - Immature Granu locytes (promyelocytes, myelocytes and metamyelocytes) > 1% indicates that a LEFT SHIFT is Present. MCH (RBC) [Entitic mass] 30.2 pg 25.0-35.0 [facility] Nucleated RBC/100 WBC (Bld) [Ratio] 0 % 0-5 [facility] MCHC Auto (RBC) [Mass/Vol]Or dered By: Cristine Holder on 02-05-2023 MCHC (RBC) [Mass/Vol] 33.0 g/dL 32-36 [facility] No Panel InformationOrdered By: Cristine Holder on 02-05-2023 Estimated GFR (MDRD) Amer 99 mL/min >60 [facility] Comment on above: GFR Calc Estimated GFR (MDRD) Non-Af Amer 82 mL/min >60 [facility] Comment on above: Non- GFR Calc Free Triiodothyronine (T3) pg/dL 2.8 pg/mL 2.18-3.98 [facility] Thyroid Stimulating Hormone (TSH) 0.62 uIU/mL 0.358-3.74 [facility] Platelets bldOrdered By: Juan Holder on 02-05-2023 Platelets (Bld) [#/Vol] 314 10*3/uL 150-450 [facility] Serum or plasma albumin rolly urement (mass/volume)Ordered By: Cristine Holder on 02-05-2023 Albumin [Mass/Vol] 4.2 g/dL 3.2-5.0 [facility] Serum or plasma albumin/glob ulin mass ratioOrdered By: Cristine Holder on 02-05-2023 Albumin/Globulin [Mass ratio] 1.1 {ratio} 0.9-2.4 [facility] Serum or plasma calcium rolly urement (mass/volume)Ordered By: Cristine Holder on 02-05-2023 Calcium [Mass/Vol] 9.8 mg/dL 8.5-10.1 [facility] Serum or plasma creatinine m easurement (mass/volume)Ordered By: Cristine Holder on 02-05-2023 Creatinine [Mass/Vol] 0.94 mg/dL 0.55-1.02 [facility] Comment on above: The validity of the calculated GFR & GFRAA in patients over 70 years has not been determined. Clinical correlation is essential. Serum or plasma ferritin kaelyn surement (mass/volume)Ordered By: Cristine Holder on 02-05-2023 Ferritin [Mass/Vol] 99 ng/mL 8-252 [facility] Serum or plasma urea nitroge n measurement (mass/volume)Ordered By: Cristine Holder on 02-05-2023 Urea nitrogen [Mass/Vol] 12 mg/dL 7-18 [facility] Thin prep Papanicolaou smear with manual screeningOrdered By: Cristine Holder on 02-05-2023 Thin prep Papanicolaou smear with manual screening 8 U/L 15-37 [facility] Thin prep Papanicolaou smear with manual screening 5 5-15 [facility] CNPNon 06-26-2022 [employer] Telephone ([employer]) DARIAN CAMPBELL ([id number]) 3 F Date Time Provider Department 06/26/22 ANDREW LLOYD During your visit today, we recorded the following information about you: Teofilo Benton RN 06/26/2022 2:59 PM Signed 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 Teofilo Benton RN Allergies As of Date: 06/26/2022 (No Known Allergies) Date Reviewed: 03/16/2020 Reviewed by: Sana Sterling Ma - Fully Assessed Reason for Visit: Release Of Medical Records [2017] Problem List As Of Date: 06/26/2022 (None) Encounter Status:Closed by TEOFILO BENTON RN on 06/26/22 Normal [facility] Vital Signs Date Time Vital Sign Value Performing Clinician Roccoi tucker 07-24-2024 09:45-0400 Body height 180.[address] Andrew Lloyd MD Work Phone: [facility] 07-24-2024 09:45-0400 Body mass index (BMI) [Ratio] 25.5 kg/m2 Dr. Andrew Lloyd MD Work Phone: [facility] 07-24-2024 09:45-04[address] Body weight [address] Andrew Lloyd MD Work Phone: [facility] 07-24-2024 09:45-0400 Diastolic blood pressure 66 mm[Hg] Dr. Andrew Lloyd MD Work Phone: [facility] 07-24-2024 09:45-0400 Systolic blood pressure 104 mm[Hg] Dr. Andrew Lloyd MD Work Phone: [facility] Encounters Encounter Date Encounter Type Care Provider Facility Start: 09-29-2024 End: 09-29-[address] Andrew Lloyd MD Work Phone: -[facility] Start: 09-29-2024 End: 09-29-[address] Warren Mixon MD -[facility] Start: 09-29-2024 End: 09-29-2024 ambulatory Andrew Lloyd Facility:[facility] Start: 07-24-2024 End: 07-24-2024 Patient encounter procedure Aziza Phillips CHOCOLATE TEMPERER-[facility] Work Phone: Start: 07-24-2024 End: 07-24-2024 Patient encounter status Aziza Phillips NP-C [facility] Start: 07-24-2024 End: 07-24-[address] Andrew Lloyd MD Work Phone: [facility] Work Phone: Start: 06-16-2024 End: 06-16-[address] Maryann Rocha MD -Laboratory [place] Work Phone: Start: 06-16-2024 End: 06-16-2024 ambulatory Maryann Rocha Facility:[facility] Start: 02-24-2023 End: 02-24-2023 ambulatory [facility] Work Phone: Start: 02-24-2023 End: 02-24-2023 Patient encounter procedure [facility], Specimen Work Phone: Start: 02-06-2023 End: 02-06-2023 ambulatory [facility] Work Phone: Start: 02-06-2023 End: 02-06-2023 Patient encounter procedure [facility], Specimen Work Phone: Start: 06-26-2022 Telephone encounter Andrew lopez MD Work Phone: [facility] Comment on above: Release Of Medical R ecords Procedures Date Procedure Procedure Detail Performing Clinician Start: 09-29-2024 Total iron binding capacity measurement Dr. Andrew Lloyd MD Work Phone: Start: 09-29-2024 Urnls dip stick/tabl et reagent auto microscopy Dr. Andrew Lloyd MD Work Phone: Start: 06-16-[address] Andrew Lloyd MD Work Phone: Plan of Treatment Date Care Activity Detail Author Start: 04-28-2025 Urine microalbumin profile DTAP,TDAP,TD (7 - Td or Tdap) [facility] Start: 02-24-2023 Procedure [facility] Start: 02-24-2023 Thiamine measurement [facility] Start: 02-24-2023 Vitamin B6 measurement [facility] Start: 02-05-2023 Thiamine measurement [facility] Start: 02-05-2023 Vitamin B6 measurement [facility] Start: 10-27-2022 [facility] Start: 2022 CHLAMYDIA SCREENING (18-24) CHLAMYDIA SCREENING (18-24) [facility] Start: 2022 GC (GONORRHEA) SCREENING (18-24) GC (GONORRHEA) SCREENING (18-24) [facility] Start: 2022 HEPATITIS C SCREENING HEPATITIS C SCREENING [facility] Start: 2022 HIV SCREENING HIV SCREENING [facility] Start: 02-26-2022 DEPRESSION ASSESSMENT DEPRESSION ASSESSMENT [facility] Start: 2020 MENINGOCOCCAL CONJUGATE (2 - 2-dose series) MENINGOCOCCAL CONJUGATE (2 - 2-dose series) [facility] Start: 2018 PEDS TO ADULT TRANSITION ANNUAL ASSESSMENT PEDS TO ADULT TRANSITION ANNUAL ASSESSMENT [facility] Start: 2016 PEDS TO ADULT TRANSITION INITIAL DISCUSSION PEDS TO ADULT TRANSITION INITIAL DISCUSSION [facility] Start: 2015 HPV VACCINE (1 - 2-dose series) HPV VACCINE (1 - 2-dose series) [facility] Start: 2004 COVID-19 VACCINE (#1) COVID-19 VACCINE (#1) [facility] Retinol [Mass/volume ] in Serum or Plasma [facility] Thyroglobulin antibo dy measurement [facility] Thyroperoxidase Ab [Units/volume] in Serum or Plasma [facility] Transferrin [Mass/vo lume] in Serum or Plasma [facility] Immunizations Immunization Date Immunization Notes Care Provider Fa cility 04-29-2015 meningococcal polysaccharide (groups A, C, Y and W-135) diphtheria toxoid conjugate vaccine (MCV4P) Andrew Lloyd MD Work Phone: [facility] Work Phone: 04-29-2015 tetanus toxoid, redu ralph diphtheria toxoid, and acellular pertussis vaccine, adsorbed Andrew Lloyd MD Work Phone: [facility] Work Phone: 05-07-2009 diphtheria, tetanus toxoids and acellular pertussis vaccine Andrew Lloyd MD Work Phone: [facility] Work Phone: 05-07-2009 measles, mumps and rubella virus vaccine Andrew Lloyd MD Work Phone: [facility] Work Phone: 05-07-2009 poliovirus vaccine, inactivated Andrew Lloyd MD Work Phone: [facility] Work Phone: 05-07-2009 varicella virus vaccine Andrew Lloyd MD Work Phone: [facility] Work Phone: 03-04-2008 influenza virus vacc ine, live, attenuated, for intranasal use Andrew Lloyd MD Work Phone: [facility] Work Phone: 06-27-2005 diphtheria, tetanus toxoids and acellular pertussis vaccine Andrew Lloyd MD Work Phone: [facility] Work Phone: 06-27-2005 haemophilus influenz ae type b vaccine, HbOC conjugate Andrew Lloyd MD Work Phone: [facility] Work Phone: 03-31-2005 measles, mumps and rubella virus vaccine Andrew Lloyd MD Work Phone: [facility] Work Phone: 03-31-2005 pneumococcal conjuga te vaccine, 7 valent Andrew Lloyd MD Work Phone: [facility] Work Phone: 03-31-2005 varicella virus vaccine Andrew Lloyd MD Work Phone: [facility] Work Phone: 2004 influenza virus vacc ine, unspecified formulation Andrew Lloyd MD Work Phone: [facility] Work Phone: 2004 DTaP-hepatitis B and poliovirus vaccine Andrew Lloyd MD Work Phone: [facility] 2004 haemophilus influenz ae type b vaccine, HbOC conjugate Andrew Lloyd MD Work Phone: [facility] 2004 pneumococcal conjuga te vaccine, 7 valbogdan Lloyd MD Work Phone: [facility] 2004 DTaP-hepatitis B and poliovirus vaccine Andrew Lloyd MD Work Phone: [facility] Work Phone: 2004 haemophilus influenz ae type b vaccine, HbOC conjugate Andrew Lloyd MD Work Phone: [facility] Work Phone: 2004 pneumococcal conjuga te vaccine, 7 valbogdan Lloyd MD Work Phone: [facility] Work Phone: 2004 pneumococcal conjuga te vaccine, 7 valbogdan Lloyd MD Work Phone: [facility] Work Phone: 2004 DTaP-hepatitis B and poliovirus vaccine Andrew Lloyd MD Work Phone: [facility] Work Phone: 2004 haemophilus influenz ae type b vaccine, HbOC conjugate Andrew Lloyd MD Work Phone: [facility] Work Phone: Payers Date Payer Category Payer Unknown [id number] 2024 Self-pay [id number] 2024 Unknown [id number] Unknown [id number] Unknown [facility] [id number] Unknown [id number] Unknown [id number] Unknown [id number] Social History Date Type Detail Facility Start: 02-06-2011 End: 07-24-2024 Tobacco smoking status NHIS Never smoked tobacco [facility] Start: 02-06-2011 Tobacco use and exposure Smokeless tobacco non-user [facility] Start: 03-16-2020 Alcohol intake 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) [facility] Start: 2004 Sex Assigned At Not on file [facility] Start: 05-09-2017 Tobacco smoking stat us NHIS Unknown if ever smoked [facility] Start: 2004 Sex Assigned At Female W [facility] Evaluation note 07-24-2024 Note Date & Type Note Facility 07-24-2024 Evaluation note Diagnosis Onset Date Resolution Encounter for routine gynecological examination noneactive July 24, 2024 9:42am [facility] Work Phone: Note 06-26-2022 Telephone Encounter - Teofilo Benton RN - 06/26/2022 2:56 PM EDT Note Date & Type Note Facility 06-26-2022 Miscellaneous Notes Formattin g of this note might be different from the original. 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 Teofilo Benton RN documented in this encounter [facility] Evaluation note Note Date & Type Note Facility Evaluation note No assessment information availa [facility] Work Phone: Evaluation note Note Date & Type Note Facility Evaluation note Diagnosis Onset Date Resolution Encounter for routine gynecological examination noneactive July 24, 2024 9:42am [facility] Work Phone: Reason for referral (narrative) Note Date & Type Note Facility Reason for referral (narrative) No reason for referral information available [employer] Work Phone: Summary Purpose Family History No Family History Records Found Relationship Condition Age at Onset Recorded Date/T aleja grandfather Cerebrovascular accident (CVA) Unknown aunt Malignant neoplasm of lung Unknown Advance Directives No Advanced Directives Records FoundNo Advanced Directives Records Found Chief Complaint and Reason for Visit Chief Complaint Admit Date SKIN June 16, 2024 4:3 9pm 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) July 24, 2024 9:42a m Reason for Visit Admit Date Encounter for routine gynecological exam ination July 24, 2024 9:42am Additional Source Comments Source Comments (unrecognize d section and content) In the event this informatio n is protected by the Federal Confidentiality of Alcohol and Drug Abuse Patient Records regulations: The Federal rules restrict any use of the information to criminally investigate or prosecute any alcohol or drug abuse patient.[facility] Reason for Visit (unrecogniz ed section and content) Reason Comments Release Of Medical Records Care Teams (unrecognized sec tion and content) Dental Intern Relationship Specialty Start Date End Date Andrew Lloyd MD [address] [place] [address] PCP - General 04 Team Status: Active Member Role Status Dates Dr. Andrew Lloyd MD Family Provider Active Dr. Andrew Lloyd MD Primary Care Provider Active Team Status: Inactive Member Role Status Dates Dr. Andrew Lloyd MD Primary Care Provider Active Cristine Holder CHOCOLATE TEMPERER, CHOCOLATE TEMPERER-C Attending Provider, Referri ng Provider Active Team Status: Inactive Member Role Status Dates Dr. Andrew Lloyd MD Primary Care Provider Active Cristine Holder CHOCOLATE TEMPERER, CHOCOLATE TEMPERER-C Attending Provider Active Team Status: Inactive Member Role Status Dates Dr. Andrew Lloyd MD Primary Care Provider Active Start: June 16, 2024 End: June 16, 2024 Dr. Maryann Rocha MD Attending Provider Active S tart: June 16, 2024 End: June 16, 2024 Dr. Maryann Rocha MD Referring Provider Active S tart: June 16, 2024 End: June 16, 2024 Team Status: Inactive Member Role Status Dates Dr. Andrew Lloyd MD Primary Care Provider Active Start: July 24, 2024 End: July 24, 2024 Dr. Andrew Lloyd MD Referring Provider Active S tart: July 24, 2024 End: July 24, 2024 PABLO Brewer Attending Provider Active Start: July 24, 2024 End: July 24, 2024 Team Status: Active Member Role/Relationship Status Dates Dr. Andrew Lloyd MD Family Provider Active Dr. Andrew Lloyd MD Primary Care Provider Active Team Status: Inactive Member Role/Relationship Status Dates Dr. Andrew Lloyd MD Primary Care Provider Active Start: June 16, 2024 End: June 16, 2024 Dr. Maryann Rocha MD Attending Provider Active S tart: June 16, 2024 End: June 16, 2024 Dr. Maryann Rocha MD Referring Provider Active S tart: June 16, 2024 End: June 16, 2024 Team Status: Inactive Member Role/Relationship Status Dates Dr. Andrew Lloyd MD Primary Care Provider Active Start: July 24, 2024 End: July 24, 2024 Dr. Andrew Lloyd MD Referring Provider Active S tart: July 24, 2024 End: July 24, 2024 PABLO Brewer Attending Provider Active Start: July 24, 2024 End: July 24, 2024 Team Status: Inactive Member Role/Relationship Status Dates Dr. Andrew Lloyd MD Primary Care Provider Active Start: September 29, 2024 End: September 29, 2024 Warren Mixon MD Attending Provider Active Start : September 29, 2024 End: September 29, 2024 INFORMATION SOURCE (unrecogn ized section and content) DATE CREATED AUTHOR 06/27/2022 [facility] DATE CREATED AUTHOR AUTHOR'S ORGANIZ ATION 10/09/[address] [facility] Goals (unrecognized section and content) Goals may be documented in a n alternate sectionGoals may be documented in an alternate sectionGoals may be documented in an alternate sectionGoals may be documented in an alternate section FOR RECORDS PERTAINING TO PATIENTS WHO ARE [...] BE BASED ON THE PRIMARY CLINICAL RECORDS. [facility] [employer] [facility]. provides no warranty or guarantee of the accuracy or completeness of information in this document.
== END | disposition home or self-care (01) ==
LOC: LABSPEC 16:34
PROVIDERS: PCP Pediatrics; Referring Provider Nurse Practitioner Family; Visit Provider Nurse Practitioner Family
DX: R10.20 Pelvic and perineal pain unspecified side (principal)
CPT/HCPCS: 87086; 87088

== ENCOUNTER → 2025-01-24 | Outpatient (CLI) | payer OTHER, SELFPAY ==
--- NOTE | 2025-01-24 08:58 | US_ITS ---
PROCEDURE: PELVIC (NON ) 01/24/2025 REASON FOR EXAM: PELVIC PAIN Chronic right-sided intermittent pain. TECHNIQUE: Procedure Code: USPEL Modality: US Procedure: PELVIC (NON ) COMPARISON: None FINDINGS: Measurements: Uterus: 8.2 cm x 6.8 cm x 4.5 cm with a volume of 130.3 mL Endometrial Thickness: 10 mm. It is hyperechoic. Right Ovary: 3 cm x 2.3 cm x 2 cm with a volume of 7 mL. Left Ovary: 3.6 cm x 2.2 cm x 1.8 cm with a volume of 7.7 mL. Uterus: Normal size, myometrial echotexture, and contour. Endometrium: Unremarkable. Right ovary: Normal size and echotexture. Left ovary: Normal size and echotexture. Other: No large pelvic mass identified. US/Pelvic (Non ) IMPRESSION: NORMAL TRANSABDOMINAL PELVIC ULTRASOUND. Reading Location: [place] [address]
--- OUTSIDE RECORDS SUMMARY | 2025-01-24 08:58 | XMS RPT_ITS | CCD ---
Author Organization [facility] [employer]ini[employer] Care Team Providers Care Clam Picker Name Role Phone Andrew Lloyd MD Primary Care Provider [phone] Moo CHOUDHURY, Dr. Bowens Primary Care Provider Aj CHOUDHURY, Dr. Wolf Attending Provider Aj CHOUDHURY, Dr. Wolf Referring Provider Moo CHOUDHURY, Dr. Bowens Referring Provider Jacqueline [employer]BLER-CAziza Attending Provider [phone] Apurva CHOUDHURY, Warren Attending Provider Aziza Phillips Attending Unavailable Andrew Lloyd Referring Unavailable Andrew Lloyd Primary Care Unavailable Andrew Lloyd Primary Care Unavailable Warrne Mixon Attending Unavailable Maryann Rocha Referring Unavailable Maryann Rocha Attending Unavailable Andrew Lloyd Primary Care Unavailable Medications Current Medications Medication Drug Class(es) Dates Sig (Normalized) Sig (Original) [address] (Nk) (2 sources) Start: 07-24-[address] (Nk) A ctive July 24, 2024 12:00am [...] Immunoglobon THY STIM IMMUNO <0.10 Normal 0.00-0.[address] [facility] Comment on above: Result Comment: Perf ormed at: BN - [facility] [address] [id number] Bank Representative: Humberto Faye MD, Phone: [phone] Performed By: #### L 506.0400, L503.6030, L400.2011, L3400.4700, L500.4050, L501.9520, L501.9187, L502.0250, L503.6550, L100.0100 #### [facility] [address] [place], [address] Absolute lymphocyte countOrd ered By: Warren Mixon on 09-29-2024 Lymphocytes Auto (Unsp spec) [#/Vol] 1.96 10*3/uL 0.83-4.[address] [facility] Absolute neutrophil countOrd ered By: Warren Mixon on 09-29-2024 Neutrophils (Bld) [#/Vol] 2.9 10*3/uL 2.0-7.[address] [facility] Anion gap in Serum or Plasma Ordered By: Warren Mixon on 09-29-2024 Anion gap [Moles/Vol] 12 mmol/L 5-15 [facility] Automated lymphocyte count a s percentage of total leukocytesOrdered By: Warren Mixon on 09-29-2024 Lymphocytes/100 WBC Auto (Unsp spec) 36.1 % - [facility] BUN/creatinine ratioOrdered By: Warren Mixon on 09-29-2024 Urea nitrogen/Creatinine [Mass ratio] 14.0 mg/mg 10-[address] [facility] Basophil percentageOrdered B y: Warren Mixon on 09-29-2024 Basophils/100 WBC (Bld) 0.9 % 0-1 [facility] Bilirubin Test strip Ql (U)O rdered By: Warren Mixon on 09-29-2024 Bilirubin Ql (U) Negative Negative [facility] Bilirubin, totalOrdered By: Warren Mixon on 09-29-2024 Bilirubin [Mass/Vol] 0.59 mg/dL 0.00-1.30 [facility] CBC W/Diff, Automatedon Absolute Lymph 1.96 X10 3/uL Normal 0.83-4.[address] [facility] Comment on above: Performed By: #### L 506.0400, L503.6030, L400.2010, L3400.4700, L500.4050, L501.9520, L501.9187, L502.0250, L503.6550, L100.0100 #### [facility] [address] [place], [address] Absolute Neut 2.9 X10 3/uL Normal 2.0-7.[address] [facility] Comment on above: Performed By: #### L 506.0400, L503.6030, L400.2010, L3400.4700, L500.4050, L501.9520, L501.9187, L502.0250, L503.6550, L100.0100 #### [facility] [address] [place], [address] Basophils/100 WBC (Bld) 0.9 % Normal 0-1 [facility] Comment on above: Performed By: #### L 506.0400, L503.6030, L400.2010, L3400.4700, L500.4050, L501.9520, L501.9187, L502.0250, L503.6550, L100.0100 #### [facility] [address] [place], [address] Eosinophils/100 WBC (Bld) 0.7 % Normal 0-[address] [facility] Comment on above: Performed By: #### L 506.0400, L503.6030, L400.2011, L3400.4700, L500.4050, L501.9520, L501.9187, L502.0250, L503.6550, L100.0100 #### [facility] [address] [facility] [place], [address] Erythrocyte distribution width (RBC) [Ratio] 12.5 % Normal 11.6-14.[address] [facility] Comment on above: Performed By: #### L 506.0400, L503.6030, L400.2010, L3400.4700, L500.4050, L501.9520, L501.9187, L502.0250, L503.6550, L100.0100 #### [facility] [address] [place], [place], [phone] Hematocrit (Bld) [Volume fraction] 43.8 % Normal 37-[address] [facility] Comment on above: Performed By: #### L 506.0400, L503.6030, L400.2010, L3400.4700, L500.4050, L501.9520, L501.9187, L502.0250, L503.6550, L100.0100 #### [facility] [address] [place], [address] Hemoglobin (Bld) [Mass/Vol] 14.5 g/dL Normal 12.0-15.[address] [facility] Comment on above: Performed By: #### L 506.0400, L503.6030, L400.2010, L3400.4700, L500.4050, L501.9520, L501.9187, L502.0250, L503.6550, L100.0100 #### [facility] [address] [place], [address] IG% 0.200 Normal 0.0-0.[address] [facility] Comment on above: Result Comment: IG% - Immature Granulocytes (promyelocytes, myelocytes and metamyelocytes) > 1% indicates that a LEFT SHIFT is Present. Performed By: #### L 506.0400, L503.6030, L400.2011, L3400.4700, L500.4050, L501.9520, L501.9187, L502.0250, L503.6550, L100.0100 #### [facility] [address] [place], [address] Lymphocytes/100 WBC (Bld) 36.1 % Normal 19-[address] [facility] Comment on above: Performed By: #### L 506.0400, L503.6030, L400.2010, L3400.4700, L500.4050, L501.9520, L501.9187, L502.0250, L503.6550, L100.0100 #### [facility] [address] [place], [address] MCH (RBC) [Entitic mass] 31.0 pg Normal 27.0-32.[address] [facility] Comment on above: Performed By: #### L 506.0400, L503.6030, L400.2010, L3400.4700, L500.4050, L501.9520, L501.9187, L502.0250, L503.6550, L100.0100 #### [facility] [address] [place], [address] MCHC (RBC) [Mass/Vol] 33.1 g/dL Normal 32-36 [facility] Comment on above: Performed By: #### L 506.0400, L503.6030, L400.2010, L3400.4700, L500.4050, L501.9520, L501.9187, L502.0250, L503.6550, L100.0100 #### [facility] [address] [place], [address] MCV (RBC) [Entitic vol] 93.6 fL Normal 81-99 [facility] Comment on above: Performed By: #### L 506.0400, L503.6030, L400.2010, L3400.4700, L500.4050, L501.9520, L501.9187, L502.0250, L503.6550, L100.0100 #### [facility] [address] [place], [address] Monocytes/100 WBC (Bld) 8.8 % Normal 0-10 [facility] Comment on above: Performed By: #### L 506.0400, L503.6030, L400.2010, L3400.4700, L500.4050, L501.9520, L501.9187, L502.0250, L503.6550, L100.0100 #### [facility] [address] [place], [address] Neutrophils/100 WBC (Bld) 53.3 % Normal 47-[address] [facility] Comment on above: Performed By: #### L 506.0400, L503.6030, L400.2010, L3400.4700, L500.4050, L501.9520, L501.9187, L502.0250, L503.6550, L100.0100 #### [facility] [address] [place], [address] Nucleated RBC (Bld) [#/Vol] 0 10*3/uL Normal 0-[address] [facility] Comment on above: Performed By: #### L 506.0400, L503.6030, L4.2010, L3400.4700, L500.4050, L501.9520, L501.9187, L502.0250, L503.6550, L100.0100 #### [facility] [address] [place], [address] Platelet mean volume (Bld) [Entitic vol] 10.7 fL Normal 6.2-12.[address] [facility] Comment on above: Performed By: #### L 506.0400, L503.6030, L400.2011, L3400.4700, L500.4050, L501.9520, L501.9187, L502.0250, L503.6550, L100.0100 #### [facility] [address] [place], [address] Platelets (Bld) [#/Vol] 208 10*3/uL Normal 150-[address] [facility] Comment on above: Performed By: #### L 506.0400, L503.6030, L400.2010, L3400.4700, L500.4050, L501.9520, L501.9187, L502.0250, L503.6550, L100.0100 #### [facility] [address] [place], [address] RBC (Bld) [#/Vol] 4.68 10*6/uL Normal 4.2-5.4 [facility] Comment on above: Performed By: #### L 506.0400, L503.6030, L400.2010, L3400.4700, L500.4050, L501.9520, L501.9187, L502.0250, L503.6550, L100.0100 #### [facility] [address] [place], [address] RDW SD 43.3 fl Normal 35.1-43.[address] [facility] Comment on above: Performed By: #### L 506.0400, L503.6030, L400.2010, L3400.4700, L500.4050, L501.9520, L501.9187, L502.0250, L503.6550, L100.0100 #### [facility] [address] [place], [address] WBC (Bld) [#/Vol] 5.4 10*3/uL Normal 4.4-11.0 [facility] Comment on above: Performed By: #### L 506.0400, L503.6030, L400.2010, L3400.4700, L500.4050, L501.9520, L501.9187, L502.0250, L503.6550, L100.0100 #### [facility] [address] [place], [address] Carbon dioxide, total [Moles /volume] in Central venous bloodOrdered By: Warren Mixon on 09-29-2024 CO2 [Moles/Vol] 24.9 mmol/L 21.0-32.[address] [facility] Chloride assayOrdered By: Jimbo Mixon on 09-29-2024 Chloride [Moles/Vol] 104 mmol/L 98-108 [facility] Comprehensive Metabolic Prof ilon 09-29-2024 Albumin [Mass/Vol] 4.6 g/dL Normal 3.5-5.0 [facility] Comment on above: Performed By: #### L 506.0400, L503.6030, L4.2010, L3400.4700, L500.4050, L501.9520, L501.9187, L502.0250, L503.6550, L100.0100 #### [facility] [address] [place], [address] Albumin/Globulin [Mass ratio] 1.6 {ratio} Normal 0.9-2.[address] [facility] Comment on above: Performed By: #### L 506.0400, L503.6030, L400.2010, L3400.4700, L500.4050, L501.9520, L501.9187, L502.0250, L503.6550, L100.0100 #### [facility] [address] [place], [address] ALK PHOS 29 U/L Low 35-[address] [facility] Comment on above: Performed By: #### L 506.0400, L503.6030, L4, L3400.4700, L500.4050, L501.9520, L501.9187, L502.0250, L503.6550, L100.0100 #### [facility] [address] [place], [place], [phone] [phone] ALT [Catalytic activity/Vol] 12 U/L Normal <=[address] [facility] Comment on above: Performed By: #### L 506.0400, L503.6030, L400.2010, L3400.4700, L500.4050, L501.9520, L501.9187, L502.0250, L503.6550, L100.0100 #### [facility] [address] [place], [address] AST [Catalytic activity/Vol] 14 U/L Normal <=[address] [facility] Comment on above: Performed By: #### L 506.0400, L503.6030, L4, L3400.4700, L500.4050, L501.9520, L501.9187, L502.0250, L503.6550, L100.0100 #### [facility] [address] [place], [place], [id number] [phone] Bilirubin [Mass/Vol] 0.59 mg/dL Normal 0.00-1.30 [facility] Comment on above: Performed By: #### L 506.0400, L503.6030, L4, L3400.4700, L500.4050, L501.9520, L501.9187, L502.0250, L503.6550, L100.0100 #### [facility] [address] [place], [address] BUN/CRE 14.0 RATIO Normal 10-[address] [facility] Comment on above: Performed By: #### L 506.0400, L503.6030, L4, L3400.4700, L500.4050, L501.9520, L501.9187, L502.0250, L503.6550, L100.0100 #### [facility] [address] [place], [address] Calcium [Mass/Vol] 9.5 mg/dL Normal 7.6-11.0 [facility] Comment on above: Performed By: #### L 506.0400, L503.6030, L400.2010, L3400.4700, L500.4050, L501.9520, L501.9187, L502.0250, L503.6550, L100.0100 #### [facility] [address] [place], [address] Chloride [Moles/Vol] 104 mmol/L Normal 98-108 [facility] Comment on above: Performed By: #### L 506.0400, L503.6030, L4, L3400.4700, L500.4050, L501.9520, L501.9187, L502.0250, L503.6550, L100.0100 #### [facility] [address] [place], [address] CO2 [Moles/Vol] 24.9 mmol/L Normal 21.0-32.[address] [facility] Comment on above: Performed By: #### L 506.0400, L503.6030, L4.2010, L3400.4700, L500.4050, L501.9520, L501.9187, L502.0250, L503.6550, L100.0100 #### [facility] [address] [place], [address] Creatinine [Mass/Vol] 0.81 mg/dL Normal 0.70-1.20 [facility] Comment on above: Performed By: #### L 506.0400, L503.6030, L4.2010, L3400.4700, L500.4050, L501.9520, L501.9187, L502.0250, L503.6550, L100.0100 #### [facility] [address] [place], [address] GAP 12 Normal 5-[address] [facility] Comment on above: Performed By: #### L 506.0400, L503.6030, L4.2010, L3400.4700, L500.4050, L501.9520, L501.9187, L502.0250, L503.6550, L100.0100 #### [facility] [address] [place], [address] GFR/1.73 sq M.predicted among non-blacks MDRD (S/P/Bld) [Vol rate/Area] 107 mL/min/{1.73_m2} Normal >[address] [facility] Comment on above: Result Comment: mL/m in/1.73m2 CKD-EPI Creatinine Equation (2020) Performed By: #### L 506.0400, L503.6030, L4, L3400.4700, L500.4050, L501.9520, L501.9187, L502.0250, L503.6550, L100.0100 #### [facility] [address] [place], [address] Globulin (S) [Mass/Vol] 2.9 g/dL Normal 2.2-4.2 [facility] Comment on above: Performed By: #### L 506.0400, L503.6030, L4.2010, L3400.4700, L500.4050, L501.9520, L501.9187, L502.0250, L503.6550, L100.0100 #### [facility] [address] [place], [address] Glucose [Mass/Vol] 85 mg/dL Normal 70-99 [facility] Comment on above: Performed By: #### L 506.0400, L503.6030, L4, L3400.4700, L500.4050, L501.9520, L501.9187, L502.0250, L503.6550, L100.0100 #### [facility] [address] [place], [address] Potassium [Moles/Vol] 3.7 mmol/L Normal 3.3-5.1 [facility] Comment on above: Performed By: #### L 506.0400, L503.6030, L400.2010, L3400.4700, L500.4050, L501.9520, L501.9187, L502.0250, L503.6550, L100.0100 #### [facility] [address] [place], [address] Sodium [Moles/Vol] 140 mmol/L Normal 133-145 [facility] Comment on above: Performed By: #### L 506.0400, L503.6030, L4.2010, L3400.4700, L500.4050, L501.9520, L501.9187, L502.0250, L503.6550, L100.0100 #### [facility] [address] [place], [address] T PROT 7.4 g/dL Normal 5.9-8.[address] [facility] Comment on above: Performed By: #### L 506.0400, L503.6030, L4.2010, L3400.4700, L500.4050, L501.9520, L501.9187, L502.0250, L503.6550, L100.0100 #### [facility] [address] [facility] [place], [address] Urea nitrogen [Mass/Vol] 11 mg/dL Normal 4-[address] [facility] Comment on above: Performed By: #### L 506.0400, L503.6030, L4, L3400.4700, L500.4050, L501.9520, L501.9187, L502.0250, L503.6550, L100.0100 #### [facility] [address] [place], [address] Eosinophil percentageOrdered By: Warren Apurva on 09-29-2024 Eosinophils/100 WBC (Bld) 0.7 % 0-[address] [facility] Erythrocyte distribution wid th ratioOrdered By: Warren Mixon on 09-29-2024 Erythrocyte distribution width (RBC) [Ratio] 12.5 % 11.6-14.[address] [facility] Erythrocyte distribution wid th standard deviationOrdered By: [facility] Apurva on 09-29-2024 Erythrocyte distribution width (RBC) [Ratio] 43.3 fl 35.1-43.[address] [facility] Ferritinon 09-29-2024 Ferritin [Mass/Vol] 79 ng/mL Normal 22-378 [facility] Comment on above: Performed By: #### L 506.0400, L503.6030, L400.2011, L3400.4700, L500.4050, L501.9520, L501.9187, L502.0250, L503.6550, L100.0100 #### [facility] [address] [place], [place], [id number] Glomerular filtration rate ( GFR) estimation/1.73 sq m using serum, plasma, or whole bOrdered By: Warren Mixon on 09-29-2024 GFR/1.73 sq M.predicted among non-blacks MDRD (S/P/Bld) [Vol rate/Area] 107 mL/min/{1.73_m2} >[address] [facility] Comment on above: mL/min/1.73m2 CKD-EP I Creatinine Equation (2020) Hematocrit Auto (Bld) [Volum e fraction]Ordered By: Warren Mixon on 09-29-2024 Hematocrit (Bld) [Volume fraction] 43.8 % 37-[address] [facility] Hemoglobin measurementOrdere d By: Warren Mixon on 09-29-2024 Hemoglobin (Bld) [Mass/Vol] 14.5 g/dL 12.0-15.[address] [facility] Immature granulocytes/100 WB C Auto (Bld)Ordered By: Warren Mixon on 09-29-2024 Immature granulocytes/100 WBC (Bld) 0.200 % 0.0-0.[address] [facility] Comment on above: IG% - Immature Granu locytes (promyelocytes, myelocytes and metamyelocytes) > 1% indicates that a LEFT SHIFT is Present. Iron measurement (mass/mass) Ordered By: Warren Mixon on 09-29-2024 Iron (Unsp spec) [Mass/Mass] 102 ug/dL 50-[address] [facility] Iron+Iron Binding Capacityon 09-29-2024 Iron [Mass/Vol] 102 ug/dL Normal 50-[address] [facility] Comment on above: Performed By: #### L 506.0400, L503.6030, L400.2010, L3400.4700, L500.4050, L501.9520, L501.9187, L502.0250, L503.6550, L100.0100 #### [facility] [address] [place], [address] IRON SATURATION 34.0 Normal 13-[address] [facility] Comment on above: Performed By: #### L 506.0400, L503.6030, L400.2010, L3400.4700, L500.4050, L501.9520, L501.9187, L502.0250, L503.6550, L100.0100 #### [facility] [address] [place], [address] TIBC 303 ug/dL Normal 250-[address] [facility] Comment on above: Performed By: #### L 506.0400, L503.6030, L400.2010, L3400.4700, L500.4050, L501.9520, L501.9187, L502.0250, L503.6550, L100.0100 #### [facility] [address] [place], [address] UIBC 201 ug/dL Low 228-[address] [facility] Comment on above: Performed By: #### L 506.0400, L503.6030, L400.2010, L3400.4700, L500.4050, L501.9520, L501.9187, L502.0250, L503.6550, L100.0100 #### [facility] [address] [place], [address] Ketones Test strip Ql (U)Ord ered By: Warren Mixon on 09-29-2024 Ketones Ql (U) Negative Negative [facility] L501.9187on 09-29-2024 T3 Total 0.90 ng/mL Normal 0.80-2.[address] [facility] Comment on above: Performed By: #### L 506.0400, L503.6030, L400.2010, L3400.4700, L500.4050, L501.9520, L501.9187, L502.0250, L503.6550, L100.0100 #### [facility] [address] [facility] [place], [address] Laboratory - Chemistry and C hemistry - challengeOrdered By: Warren Mixon on 09-29-2024 AST [Catalytic activity/Vol] 14 U/L <[address] [facility] MCV (mean corpuscular volume ) determinationOrdered By: Warren Mixon on 09-29-2024 MCV (RBC) [Entitic vol] 93.6 fL 81-99 [facility] Mean corpuscular hemoglobin (MCH) determinationOrdered By: Warren Mixon on 09-29-2024 MCH (RBC) [Entitic mass] 31.0 pg 27.0-32.[address] [facility] Mean corpuscular hemoglobin concentration (MCHC) determinationOrdered By: Warren Mixon on 09-29-2024 MCHC (RBC) [Mass/Vol] 33.1 g/dL 32-36 [facility] Mean platelet volume determi nationOrdered By: Warren Mixon on 09-29-2024 Platelet mean volume (Bld) [Entitic vol] 10.7 fL 6.2-12.[address] [facility] Microalb:Creat Ratio,Random URon 09-29-2024 Creatinine [Mass/Vol] 183.00 mg/dL Normal 28.00-217.[address] [facility] Comment on above: Performed By: #### L 506.0400, L503.6030, L400.2010, L3400.4700, L500.4050, L501.9520, L501.9187, L502.0250, L503.6550, L100.0100 #### [facility] [address] [facility] [place], [place], [id number] MALB:CREAT UNABLE TO CALCULATE Normal <30 mg/g CRE [facility] Comment on above: Performed By: #### L 506.0400, L503.6030, L400.2010, L3400.4700, L500.4050, L501.9520, L501.9187, L502.0250, L503.6550, L100.0100 #### [facility] [address] [facility] [place], [place], [id number] MICROALBUMIN,UR < 12.0 Normal <20 mg/L [facility] Comment on above: Performed By: #### L 506.0400, L503.6030, L400.2010, L3400.4700, L500.4050, L501.9520, L501.9187, L502.0250, L503.6550, L100.0100 #### [facility] [address] [facility] [place], [place], [id number] Microalbumin/creat ratio urO rdered By: Warren Mixon on 09-29-2024 Urine microalbumin/creatinine ratio measurement UNABLE TO CALCULATE mg/g CRE <[address] [facility] Monocyte percentageOrdered B y: Warren Mixon on 09-29-2024 Monocytes/100 WBC (Bld) 8.8 % 0-10 [facility] Neutrophil percentageOrdered By: Warren Mixon on 09-29-2024 Neutrophils/100 WBC (Bld) 53.3 % 47-[address] [facility] Nitrite Test strip Ql (U)Ord ered By: Warren Mixon on 09-29-2024 Nitrite Ql (U) Negative Negative [facility] No Panel InformationOrdered By: Warren Mixon on 09-29-2024 Unsaturated Iron Binding Capacity 201 ug/dL Low 228-[address] [facility] Nucleated red blood cell per centageOrdered By: Warren Mixon on 09-29-2024 Nucleated RBC/100 WBC (Bld) [Ratio] 0 % 0-[address] [facility] Platelet countOrdered By: Jimbo Mixon on 09-29-2024 Platelets (Bld) [#/Vol] 208 10*3/uL 150-[address] [facility] Potassium measurement (mass/ volume)Ordered By: Warren Mixon on 09-29-2024 Potassium (Unsp spec) [Mass/Vol] 3.7 mmol/L 3.3-5.[address] [facility] Protein Test strip Ql (U)Ord ered By: Warren Mixon on 09-29-2024 Protein Ql (U) Negative Negative [facility] RBC Auto (Bld) [#/Vol]Ordere d By: Warren Mixon on 09-29-2024 RBC (Bld) [#/Vol] 4.68 10*6/uL 4.2-5.4 [facility] Random urine creatinine rolly urement (mass/volume)Ordered By: Warren Mixon on 09-29-2024 Creatinine Unsp time (U) [Mass/Vol] 183.00 mg/dL 28.00-217.[address] [facility] Serum creatinine measurement (mass/volume)Ordered By: Warren Mixon on 09-29-2024 Creatinine [Mass/Vol] 0.81 mg/dL 0.70-1.20 [facility] Serum globulin measurementOr dered By: Warren Mixon on 09-29-2024 Globulin (S) [Mass/Vol] 2.9 g/dL 2.2-4.2 [facility] Serum glucose measurement (m ass/volume)Ordered By: Warren Mixon on 09-29-2024 Glucose [Mass/Vol] 85 mg/dL 70-99 [facility] Serum or plasma alanine urias otransferase (ALT) measurementOrdered By: Warren Mixon on 09-29-2024 ALT [Catalytic activity/Vol] 12 U/L <[address] [facility] Serum or plasma albumin rolly urement (mass/volume)Ordered By: Warren Mixon on 09-29-2024 Albumin [Mass/Vol] 4.6 g/dL 3.5-5.0 [facility] Serum or plasma albumin/glob ulin mass ratioOrdered By: Warren Mixon on 09-29-2024 Albumin/Globulin [Mass ratio] 1.6 {ratio} 0.9-2.[address] [facility] Serum or plasma alkaline donovan sphatase measurementOrdered By: Warren Mixon on 09-29-2024 ALP [Catalytic activity/Vol] 29 U/L Low 35-[address] [facility] Serum or plasma calcium rolly urement (mass/volume)Ordered By: Warren Mixon on 09-29-2024 Calcium [Mass/Vol] 9.5 mg/dL 7.6-11.0 [facility] Serum or plasma ferritin kaelyn surement (mass/volume)Ordered By: Warren Mixon on 09-29-2024 Ferritin [Mass/Vol] 79 ng/mL 22-378 [facility] Serum or plasma iron saturat ion measurement (mass fraction)Ordered By: Warren Mixon on 09-29-2024 Iron saturation [Mass fraction] 34.0 % 13-[address] [facility] Serum or plasma triiodothyro nine (T3) measurement (mass/volume)Ordered By: Warren Mixon on 09-29-2024 T3 [Mass/Vol] 0.90 ng/mL 0.80-2.[address] [facility] Serum or plasma urea nitroge n measurement (mass/volume)Ordered By: Warren Mixon on 09-29-2024 Urea nitrogen [Mass/Vol] 11 mg/dL 4-[address] [facility] Sodium levelOrdered By: Carmelita Mixon on 09-29-2024 Sodium [Moles/Vol] 140 mmol/L 133-145 [facility] T4 Free Directon 09-29-2024 T4 FREE DIRECT 1.10 ng/dL Normal 0.76-1.[address] [facility] Comment on above: Order Comment: N Performed By: #### L [id number], L503.6030, L400.2010, L3400.4700, L500.4050, L501.9520, L501.9187, L502.0250, L503.6550, L100.0100 #### [facility] [address] [place], [address] T4 freeOrdered By: Warren harrison on 09-29-2024 Free T4 [Mass/Vol] 1.10 ng/dL 0.76-1.46 [facility] TSH DL <= 0.005 mIU/L QnOrde red By: Warren Mixon on 09-29-2024 TSH Qn 0.631 uIU/mL 0.300-4.[address] [facility] Thyroid Stim Hormone (TSH)on 09-29-2024 TSH 0.631 uIU/mL Normal 0.300-4.[address] [facility] Comment on above: Performed By: #### L 506.0400, L503.6030, L400, L3400.4700, L500.4050, L501.9520, L501.9187, L502.0250, L503.6550, L100.0100 #### [facility] [address] [place], [address] Thyroid stimulating immunogl obulins detectionOrdered By: Warren Mixon on 09-29-2024 Thyroid stimulating immunoglobulins Ql (S) <0.10 IU/L 0.00-0.[address] [facility] Comment on above: Performed at: [address] [id number] Director: Humberto Faye MD, Phone: [phone] Total proteinOrdered By: Devika Mixon on 09-29-2024 Protein [Mass/Vol] 7.4 g/dL 5.9-8.4 [facility] Urinalysis, Routine (Dipstic k)on 09-29-2024 BILIRUBIN URINE Negative Normal Negative [facility] Comment on above: Order Comment: Urine , Random Performed By: #### L 506.0400, L503.6030, L4.2010, L3400.4700, L500.4050, L501.9520, L501.9187, L502.0250, L503.6550, L100.0100 #### [facility] [address] [place], [address] Clarity (U) Clear Normal Clear [facility] Comment on above: Order Comment: Urine , Random Performed By: #### L 506.0400, L503.6030, L400.2010, L3400.4700, L500.4050, L501.9520, L501.9187, L502.0250, L503.6550, L100.0100 #### [facility] [address] [place], [place], [id number] Color (U) Yellow Normal Yellow [facility] Comment on above: Order Comment: Urine , Random Performed By: #### L 506.0400, L503.6030, L4.2010, L3400.4700, L500.4050, L501.9520, L501.9187, L502.0250, L503.6550, L100.0100 #### [facility] [address] [place], [place], [id number] [phone] GLUCOSE, UR Normal Normal Normal [facility] Comment on above: Order Comment: Urine , Random Performed By: #### L 506.0400, L503.6030, L400.2010, L3400.4700, L500.4050, L501.9520, L501.9187, L502.0250, L503.6550, L100.0100 #### [facility] [address] [place], [address] KETONE UR Negative Normal Negative [facility] Comment on above: Order Comment: Urine , Random Performed By: #### L 506.0400, L503.6030, L400.2010, L3400.4700, L500.4050, L501.9520, L501.9187, L502.0250, L503.6550, L100.0100 #### [facility] [address] [place], [address] LEUK ESTERASE Negative Normal Negative [facility] Comment on above: Order Comment: Urine , Random Performed By: #### L 506.0400, L503.6030, L400.2010, L3400.4700, L500.4050, L501.9520, L501.9187, L502.0250, L503.6550, L100.0100 #### [facility] [address] [place], [address] Nitrite Ql (U) Negative Normal Negative [facility] Comment on above: Order Comment: Urine , Random Performed By: #### L 506.0400, L503.6030, L4.2010, L3400.4700, L500.4050, L501.9520, L501.9187, L502.0250, L503.6550, L100.0100 #### [facility] [address] [place], [address] OCCULT BLOOD-UR Negative Normal Negative [facility] Comment on above: Order Comment: Urine , Random Performed By: #### L 506.0400, L503.6030, L4.2010, L3400.4700, L500.4050, L501.9520, L501.9187, L502.0250, L503.6550, L100.0100 #### [facility] [address] [place], [address] pH UR 7.0 Normal 5.0 - 8.[address] [facility] Comment on above: Order Comment: Urine , Random Performed By: #### L 506.0400, L503.6030, L4.2010, L3400.4700, L500.4050, L501.9520, L501.9187, L502.0250, L503.6550, L100.0100 #### [facility] [address] [place], [address] PROT DIPSTX Negative Normal Negative [facility] Comment on above: Order Comment: Urine , Random Performed By: #### L 506.0400, L503.6030, L400.2010, L3400.4700, L500.4050, L501.9520, L501.9187, L502.0250, L503.6550, L100.0100 #### [facility] [address] [place], [place], [id number] SP.GR. DIPSTX 1.015 Normal 1.002-1.[address] [facility] Comment on above: Order Comment: Urine , Random Performed By: #### L 506.0400, L503.6030, L400.2010, L3400.4700, L500.4050, L501.9520, L501.9187, L502.0250, L503.6550, L100.0100 #### [facility] [address] [place], [place], [id number] UROBILI Normal Normal Normal [facility] Comment on above: Order Comment: Urine , Random Performed By: #### L 506.0400, L503.6030, L4.2010, L3400.4700, L500.4050, L501.9520, L501.9187, L502.0250, L503.6550, L100.0100 #### [facility] [address] [place], [place], [id number] Urine albumin measurement [facility] detection limit of 20 mg/L or less (mass/volume)Ordered By: Warren Mixon on 09-29-2024 Albumin DL <= 20 mg/L (U) [Mass/Vol] < 12.0 mg/L <20 mg/L [facility] Urine clarityOrdered By: Devika Mixon on 09-29-2024 Clarity (U) Clear Clear [facility] Urine color determinationOrd ered By: Warren Mixon on 09-29-2024 Color (U) Yellow Yellow [facility] Urine glucose detectionOrder ed By: Warren Mixon on 09-29-2024 Glucose Ql (U) Normal mg/dl Normal [facility] Urine leukocyte esterase det ection by dipstickOrdered By: Warren Mixon on 09-29-2024 Leukocyte esterase Test strip Ql (U) Negative Negative [facility] Urine pHOrdered By: Warren blakely on 09-29-2024 pH (U) 7.0 [pH] 5.0 - 8.[address] [facility] Urine specific gravity measu rementOrdered By: Warren Mixon on 09-29-2024 Specific gravity (U) [Rel density] 1.015 1.002-1.[address] [facility] Urine urobilinogen measureme ntOrdered By: Warren Mixon on 09-29-2024 Urobilinogen Ql (U) Normal mg/dl Normal [facility] White blood cell (WBC) count Ordered By: Warren Mixon on 09-29-2024 WBC (Bld) [#/Vol] 5.4 10*3/uL 4.4-11.0 [facility] Wireworker Supervisor Office Visit Reporton 07-24-2024 Wireworker Supervisor Office Visit Report [facility] [address], [address] [place] [address] OFFICE VISIT Date of Service: 07/24/24 MR#: [id number] Acct: [id number] Name: DARIAN CAMPBELL Rep #: [id number] : 2005 Provider: PABLO Heath Age/Sex: 19/F [place] [facility] [place]: Signed Intake Vital Signs 05/09/17 09:26 07/24/24 09:45 Height 5 ft 10 in 5 ft 11 in Weight: 183 lb BMI 25.5 BP 104/66 Intake Visit Reasons: Annual (FRINGE MAKER) Pt Skilled Required: No Is patient in pain?: No Allergies No Known Allergies Allergy (Verified 07/24/24 09:46) Medications ???Medication ???Instructions ???Recorded ???Confirmed ???Type NK 07/24/24 07/24/24 History Is last menstrual period known: Yes Last Menstrual Period: 07/21/24 Post menopausal: No Patient : No : No Control Method: [facility] [place] teeth removed Family History Grandfather CVA (cerebral vascular accident) Aunt Lung cancer Social History adopted: No number of children: 0 current occupational status: employed and student 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.] Off vis,new,prev (more content not included)... Normal [facility] Thyroid Peroxidase ABon - THYR PEROX AB 36 IU/mL High 0-[address] [facility] Comment on above: Result Comment: Perf ormed at: - [facility] [address] [id number] Bank Representative: Joseph Bernabe PhD, Phone: [phone] Performed By: #### L 506.0400, L503.7019, L400.2010, L3400.4700, L500.4050, L501.9520, L501.9187, L502.0250, L503.9250, L100.0100 #### [facility] [address] [place], [place], [address] L501.0895on 06-17-2024 Calcium [Mass/Vol] 9.6 mg/dL Normal 7.6-11.0 [facility] Comment on above: Performed By: #### L 506.0400, L503.6030, L400.2010, L3400.4700, L500.4050, L501.9520, L501.9187, L502.0250, L503.6550, L100.0100 #### [facility] [address] [place], [address] Ferritinon 06-16-2024 Ferritin [Mass/Vol] 81 ng/mL Normal 22-378 [facility] Comment on above: Performed By: #### L 506.0400, L503.6030, L400.2010, L3400.4700, L500.4050, L501.9520, L501.9187, L502.0250, L503.6550, L100.0100 #### [facility] [address] [place], [address] Free T3on 06-16-2024 Free T3 [Mass/Vol] 3.0 pg/mL Normal 2.18-3.98 [facility] Comment on above: Performed By: #### L 506.0400, L503.6030, L4.2010, L3400.4700, L500.4050, L501.9520, L501.9187, L502.0250, L503.6550, L100.0100 #### [facility] [address] [place], [address] Free H1Uppnclc By: Andrew abernathy on 06-16-2024 Free T3 [Mass/Vol] 3.0 pg/mL 2.18-3.98 [facility] PTHINon 06-16-2024 PTH 28 pg/mL Normal 11-[address] [facility] Comment on above: Performed By: #### L 506.0400, L503.6030, L400.2010, L3400.4700, L500.4050, L501.9520, L501.9187, L502.0250, L503.6550, L100.0100 #### [facility] [address] [place], [place], [address] Serum or plasma calcium rolly urement (mass/volume)Ordered By: Andrew Lloyd on 06-16-2024 Calcium [Mass/Vol] 9.6 mg/dL 7.6-11.0 [facility] Serum or plasma ferritin kaelyn surement (mass/volume)Ordered By: Andrew Lloyd on 06-16-2024 Ferritin [Mass/Vol] 81 ng/mL 22-378 [facility] Serum or plasma thyroperoxid ase antibody assay (units/volume)Ordered By: Andrew Lloyd on 06-16-2024 TPO Ab Qn 36 [IU]/mL High 0-[address] [facility] Comment on above: Performed at: [place] [id number] Director: Joseph Bernabe PhD, Phone: [phone] T4 Free Directon 06-16-2024 T4 FREE DIRECT 1.20 ng/dL Normal 0.76-1.[address] [facility] Comment on above: Performed By: #### L 506.0400, L503.6030, L4, L3400.4700, L500.4050, L501.9520, L501.9187, L502.0250, L503.6550, L100.0100 #### [facility] [address] [place], [place], [id number] T4 freeOrdered By: Andrew abernathy on 06-16-2024 Free T4 [Mass/Vol] 1.20 ng/dL 0.76-1.46 [facility] TSH DL <= 0.005 mIU/L QnOrde red By: Andrew Lloyd on 06-16-2024 TSH Qn 1.250 uIU/mL 0.300-4.[address] [facility] Thyroid Stim Hormone (TSH)on 06-16-2024 TSH 1.250 uIU/mL Normal 0.300-4.[address] [facility] Comment on above: Performed By: #### L 506.0400, L503.6030, L4.2010, L3400.4700, L500.4050, L501.9520, L501.9187, L502.0250, L503.6550, L100.0100 #### [facility] [address] [place], [address] Laboratory - Chemistry and C hemistry - challengeOrdered By: Cristine Holder on 02-24-2023 Cobalamin (Vitamin B12) [Mass/Vol] 439 pg/mL 211-[address] [facility] Magnesium [Mass/Vol] 2.2 mg/dL 1.6-2.6 [facility] No Panel InformationOrdered By: Cristine Holder on 02-24-2023 Vitamin D 25-Hydroxy 35.0 ng/mL [facility] Comment on above: Vitamin D 25(OH) Sta tus Range Deficiency <20 ng/mL (50nmol/L) Insufficiency 20 - 30 ng/mL (50 - 75 nmol/L) Sufficiency 30 - 100 ng/mL (75 - 250 nmol/L) Toxicity >100 ng/mL (>250 nmol/L) Absolute lymphocyte countOrd ered By: Cristine Holder on 02-05-2023 Lymphocytes Auto (Unsp spec) [#/Vol] 2.79 10*3/uL 0.83-4.[address] [facility] Basophil percentageOrdered B y: Cristine Holder on 02-05-2023 Basophils/100 WBC (Bld) 0.8 % 0-1 [facility] Bilirubin [Mass/Vol] 0.50 mg/dL 0.20-1.00 [facility] Comment on above: For patients on eltr ombopag therapy, use of Dimension Hines TBIL is not recommended. Chloride [Moles/Vol] 102 mmol/L 98-107 [facility] Eosinophils/100 WBC (Bld) 0.4 % 0-[address] [facility] Glucose [Mass/Vol] 69 mg/dL 74-106 [facility] Neutrophils (Bld) [#/Vol] 5.4 10*3/uL 2.0-7.[address] [facility] Neutrophils/100 WBC (Bld) 60.1 % 34-[address] [facility] Potassium [Moles/Vol] 3.8 mmol/L 3.5-5.1 [facility] Protein [Mass/Vol] 8.1 g/dL 6.4-8.2 [facility] Sodium [Moles/Vol] 139 mmol/L 136-145 [facility] WBC (Bld) [#/Vol] 9.1 10*3/uL 4.5-13.0 [facility] Blood erythrocytes count (nu mber/volume)Ordered By: Cristine Holder on 02-05-2023 RBC (Bld) [#/Vol] 4.90 10*6/uL 4.1-4.8 [facility] Blood hemoglobin measurement (mass/volume)Ordered By: Cristine Holder on 02-05-2023 Hemoglobin (Bld) [Mass/Vol] 14.8 g/dL 12.0-15.[address] [facility] Blood lymphocytes/100 leukoc ytesOrdered By: Cristine Holder on 02-05-2023 Lymphocytes/100 WBC (Bld) 30.8 % 25-[address] [facility] Blood monocytes/100 leukocyt esOrdered By: Cristine Holder on 02-05-2023 Monocytes/100 WBC (Bld) 7.6 % 3-6 [facility] Blood platelet mean volumeOr dered By: Cristine Holder on 02-05-2023 Platelet mean volume (Bld) [Entitic vol] 10.6 fL 6.2-12.[address] [facility] Determination of erythrocyte mean corpuscular volume (MCV)Ordered By: Cristine Holder on 02-05-2023 MCV (RBC) [Entitic vol] 91.6 fL 78-96 [facility] Hematocrit Auto (Bld) [Volum e fraction]Ordered By: Cristine Holder on 02-05-2023 Hematocrit (Bld) [Volume fraction] 44.9 % 37-[address] [facility] Iron measurement (mass/mass) Ordered By: Cristine Holder on 02-05-2023 Iron (Unsp spec) [Mass/Mass] 65 ug/dL 50-[address] [facility] Laboratory - Chemistry and C hemistry - challengeOrdered By: Cristine Holder on 02-05-2023 ALP [Catalytic activity/Vol] 29 U/L 47-[address] [facility] ALT [Catalytic activity/Vol] 13 U/L 13-[address] [facility] CO2 [Moles/Vol] 32.0 mmol/L 21.0-32.[address] [facility] Cobalamin (Vitamin B12) [Mass/Vol] 384 pg/mL 211-[address] [facility] Free T4 [Mass/Vol] 0.98 ng/dL 0.76-1.46 [facility] Globulin (S) [Mass/Vol] 3.9 g/dL 2.2-4.2 [facility] Urea nitrogen/Creatinine [Mass ratio] 12.8 mg/mg 10-[address] [facility] Laboratory - Hematology and Cell countsOrdered By: Cristine Holder on 02-05-2023 Erythrocyte distribution width (RBC) [Entitic vol] 38.3 fL 35.1-43.[address] [facility] Erythrocyte distribution width (RBC) [Ratio] 11.4 % 11.6-14.[address] [facility] Immature granulocytes/100 WBC (Bld) 0.300 % 0.0-0.[address] [facility] Comment on above: IG% - Immature Granu locytes (promyelocytes, myelocytes and metamyelocytes) > 1% indicates that a LEFT SHIFT is Present. MCH (RBC) [Entitic mass] 30.2 pg 25.0-35.[address] [facility] Nucleated RBC/100 WBC (Bld) [Ratio] 0 % 0-[address] [facility] MCHC Auto (RBC) [Mass/Vol]Or dered By: Cristine Holder on 02-05-2023 MCHC (RBC) [Mass/Vol] 33.0 g/dL 32-36 [facility] No Panel InformationOrdered By: Cristine Holder on 02-05-2023 Estimated GFR (MDRD) Amer 99 mL/min >[address] [facility] Comment on above: GFR Calc Estimated GFR (MDRD) Non-Af Amer 82 mL/min >[address] [facility] Comment on above: Non- GFR Calc Free Triiodothyronine (T3) pg/dL 2.8 pg/mL 2.18-3.[address] [facility] Thyroid Stimulating Hormone (TSH) 0.62 uIU/mL 0.358-3.[address] [facility] Platelets bldOrdered By: Juan Holder on 02-05-2023 Platelets (Bld) [#/Vol] 314 10*3/uL 150-[address] [facility] Serum or plasma albumin rolly urement (mass/volume)Ordered By: Cristine Holder on 02-05-2023 Albumin [Mass/Vol] 4.2 g/dL 3.2-5.0 [facility] Serum or plasma albumin/glob ulin mass ratioOrdered By: Cristine Holder on 02-05-2023 Albumin/Globulin [Mass ratio] 1.1 {ratio} 0.9-2.[address] [facility] Serum or plasma calcium rolly urement (mass/volume)Ordered By: Cristine Holder on 02-05-2023 Calcium [Mass/Vol] 9.8 mg/dL 8.5-10.1 [facility] Serum or plasma creatinine m easurement (mass/volume)Ordered By: Cristine Holder on 02-05-2023 Creatinine [Mass/Vol] 0.94 mg/dL 0.55-1.02 [facility] Comment on above: The validity of the calculated GFR & GFRAA in patients over 70 years has not been determined. Clinical correlation is essential. Serum or plasma ferritin kaelyn surement (mass/volume)Ordered By: Cristine Holder on 02-05-2023 Ferritin [Mass/Vol] 99 ng/mL 8-252 [facility] Serum or plasma urea nitroge n measurement (mass/volume)Ordered By: Cristine Holder on 02-05-2023 Urea nitrogen [Mass/Vol] 12 mg/dL 7-[address] [facility] Thin prep Papanicolaou smear with manual screeningOrdered By: Cristine Holder on 02-05-2023 Thin prep Papanicolaou smear with manual screening 8 U/L 15-[address] [facility] Thin prep Papanicolaou smear with manual screening 5 5-[address] [facility] CNPNon 06-26-2022 [facility] ([facility] DARIAN CAMPBELL ([id number]) 3 F Date Time Provider Department 06/26/22 ANDREW LLOYD During your visit today, we recorded the following information about you: Teofilo Benton RN 06/26/2022 2:59 PM Signed Immunization record printed and filed in medical records dept for order picker/assembler as requested by patient. Teofilo Benton RN Allergies As of Date: 06/26/2022 (No Known Allergies) Date Reviewed: 03/16/2020 Reviewed by: Sana Sterling Ma - Fully Assessed Reason for Visit: Release Of Medical Records [2017] Problem List As Of Date: 06/26/2022 (None) Encounter Status:Closed by TEOFILO BENTON RN on 06/26/22 Normal [facility] Vital Signs Date Time Vital Sign Value Performing Clinician Roccoi tucker 07-24-2024 09:45-0400 Body height 180.[address] Andrew Lloyd MD Work Phone: [facility] 07-24-2024 09:45-0400 Body mass index (BMI) [Ratio] 25.5 kg/m2 Dr. Andrew Lloyd MD Work Phone: [facility] 07-24-2024 09:45-0400 Body weight [address] Andrew Lloyd MD Work Phone: [facility] 07-24-2024 09:45-0400 Diastolic blood pressure 66 mm[Hg] Dr. Andrew Lloyd MD Work Phone: [facility] 07-24-2024 09:45-0400 Systolic blood pressure 104 mm[Hg] Dr. Andrew Lloyd MD Work Phone: [facility] Encounters Encounter Date Encounter Type Care Provider Facility Start: 09-29-2024 End: 09-29-[address] Andrew Lloyd MD Work Phone: -Laboratory [facility] Start: 09-29-2024 End: 09-29-[address] Warren Mixon MD -Laboratory [facility] Start: 09-29-2024 End: 09-29-2024 ambulatory Andrew Lloyd Facility:[facility] Start: 07-24-2024 End: 07-24-2024 Patient encounter procedure Aziza Phillips HOUSEHOLD APPLIANCE ASSEMBLER-C -[facility] Work Phone: Start: 07-24-2024 End: 07-24-2024 Patient encounter status Aziza Phillips NP-C [facility] Start: 07-24-2024 End: 07-24-[address] Andrew Lloyd MD Work Phone: [facility] Work Phone: Start: 06-16-2024 End: 06-16-[address] Maryann Rocha MD -Laboratory [place] Work Phone: Start: 06-16-2024 End: 06-16-2024 ambulatory Maryann Rocha Facility:[facility] Start: 02-24-2023 End: 02-24-[address] [facility] Work Phone: Start: 02-24-2023 End: 02-24-2023 [address] [facility] Specimen Work Phone: Start: 02-06-2023 End: 02-06-[address] [facility] Work Phone: Start: 02-06-2023 End: 02-06-[address] [facility] Specimen Work Phone: Start: 06-26-2022 Telephone encounter Andrew lopez MD Work Phone: [facility] Comment on above: Release Of Medical R [...] profile DTAP,TDAP,TD (7 - Td or Tdap) [facility] Start: 02-24-[address] [facility] Start: 02-24-[address] [facility] Start: 02-24-2023 Vitamin [address] [facility] Start: 02-05-[address] [facility] Start: 02-05-2023 Vitamin B6 measurement [facility] Start: 10-27-2022 [facility] Start: 2022 CHLAMYDIA SCREENING (18-24) CHLAMYDIA SCREENING (18-24) [facility] Start: 2022 GC (GONORRHEA) SCREENING (18-24) GC (GONORRHEA) SCREENING (18-24) [facility] Start: 2022 HEPATITIS C SCREENING HEPATITIS C SCREENING [facility] Start: 2022 HIV SCREENING HIV SCREENING [facility] Start: 02-26-2022 DEPRESSION ASSESSMENT DEPRESSION ASSESSMENT [facility] Start: 2020 MENINGOCOCCAL CONJUGATE (2 - 2-dose series) MENINGOCOCCAL CONJUGATE (2 - 2-dose series) [facility] Start: 2018 PEDS TO ADULT TRANSITION ANNUAL ASSESSMENT PEDS TO ADULT TRANSITION ANNUAL ASSESSMENT [facility] Start: 2016 PEDS TO ADULT TRANSITION INITIAL DISCUSSION PEDS TO ADULT TRANSITION INITIAL DISCUSSION [facility] Start: 2015 HPV VACCINE (1 - 2-dose series) HPV VACCINE (1 - 2-dose series) [facility] Start: 2004 COVID-19 VACCINE (#1) COVID-19 VACCINE (#1) [facility] Retinol [Mass/volume ] in Serum or Plasma [facility] Thyroglobulin antibo dy measurement [facility] Thyroperoxidase Ab [Units/volume] in Serum or Plasma [facility] Transferrin [Mass/vo lume] in Serum or Plasma [facility] Immunizations Immunization Date Immunization Notes Care Provider Fa cility 04-29-2015 meningococcal polysaccharide (groups A, C, Y and W-135) diphtheria toxoid conjugate vaccine (MCV4P) Andrew Lloyd MD Work Phone: [facility] Work Phone: 04-29-2015 tetanus toxoid, redu ralph diphtheria toxoid, and acellular pertussis vaccine, adsorbed Andrew Lloyd MD Work Phone: [facility] Work Phone: 05-07-2009 diphtheria, tetanus toxoids and acellular pertussis vaccine Andrew Lloyd MD Work Phone: [facility] Work Phone: 05-07-2009 measles, mumps and rubella virus vaccine Andrew Lloyd MD Work Phone: [facility] Work Phone: 05-07-2009 poliovirus vaccine, inactivated Andrew Lloyd MD Work Phone: [facility] Work Phone: 05-07-2009 varicella virus vaccine Andrew Lloyd MD Work Phone: [facility] Work Phone: 03-04-2008 influenza virus vacc ine, live, attenuated, for intranasal use Andrew Lloyd MD Work Phone: [facility] Work Phone: 06-27-2005 diphtheria, tetanus toxoids and acellular pertussis vaccine Andrew Lloyd MD Work Phone: [facility] Work Phone: 06-27-2005 haemophilus influenz ae type b vaccine, HbOC conjugate Andrew Lloyd MD Work Phone: [facility] Work Phone: 03-31-2005 measles, mumps and rubella virus vaccine Andrew Lloyd MD Work Phone: [facility] Work Phone: 03-31-2005 pneumococcal conjuga te vaccine, 7 valent Andrew Lloyd MD Work Phone: [facility] Work Phone: 03-31-2005 varicella virus vaccine Andrew Lloyd MD Work Phone: [facility] Work Phone: 2004 influenza virus vacc ine, unspecified formulation Andrew Lloyd MD Work Phone: [facility] Work Phone: 2004 DTaP-hepatitis B and poliovirus vaccine Andrew Lloyd MD Work Phone: [facility] 2004 haemophilus influenz ae type b vaccine, HbOC conjugate Andrew Lloyd MD Work Phone: [facility] 2004 pneumococcal conjuga te vaccine, 7 valbogdan Lloyd MD Work Phone: [facility] 2004 DTaP-hepatitis B and poliovirus vaccine Andrew Lloyd MD Work Phone: [facility] Work Phone: 2004 haemophilus influenz ae type b vaccine, HbOC conjugate Andrew Lloyd MD Work Phone: [facility] Work Phone: 2004 pneumococcal conjuga te vaccine, 7 valbogdan Lloyd MD Work Phone: [facility] Work Phone: 2004 pneumococcal conjuga te vaccine, 7 valbogdan Lloyd MD Work Phone: [facility] Work Phone: 2004 DTaP-hepatitis B and poliovirus vaccine Andrew Lloyd MD Work Phone: [facility] Work Phone: 2004 haemophilus influenz ae type b vaccine, HbOC conjugate Andrew Lloyd MD Work Phone: [facility] Work Phone: Payers Date Payer Category Payer Unknown [id number] 2024 Self-pay [id number] 2024 Unknown [id number] Unknown [id number] Unknown [facility] [id number] Unknown [id number] Unknown [id number] Unknown [id number] Social History Date Type Detail Facility Start: 02-06-2011 End: 07-24-2024 Tobacco smoking status NHIS Never smoked tobacco [facility] Start: 02-06-2011 Tobacco use and exposure Smokeless tobacco non-user [facility] Start: 03-16-2020 Alcohol intake 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-dr 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 alcohol (finding) [facility] Start: 2004 Sex Assigned At Not on file [facility] Start: 05-09-2017 Tobacco smoking stat us NHIS Unknown if ever smoked [facility] Start: 2004 Sex Assigned At Female [facility] Evaluation note 07-24-2024 Note Date & Type Note Facility 07-24-2024 Evaluation note Diagnosis Onset Date Resolution Encounter for routine gynecological examination noneactive July 24, 2024 9:42am [facility] Work Phone: Note 06-26-2022 Telephone Encounter - Teofilo Benton RN - 06/26/2022 2:56 PM EDT Note Date & Type Note Facility 06-26-2022 Miscellaneous Notes Formattin g of this note might be different from the original. Immunization record printed and filed in medical records dept for order picker/assembler as requested by patient. Teofilo Benton RN documented in this encounter [facility] Evaluation note Note Date & Type Note Facility Evaluation note No assessment information availa [facility] Work Phone: Evaluation note Note Date & Type Note Facility Evaluation note Diagnosis Onset Date Resolution Encounter for routine gynecological examination noneactive July 24, 2024 9:42am [facility] Work Phone: Reason for referral (narrative) Note Date & Type Note Facility Reason for referral (narrative) No reason for referral information available [facility] Work Phone: Summary Purpose Family History No Family History Records Found Relationship Condition Age at Onset Recorded Date/T aleja grandfather Cerebrovascular accident (CVA) Unknown aunt Malignant neoplasm of lung Unknown Advance Directives No Advanced Directives Records FoundNo Advanced Directives Records Found Chief Complaint and Reason for Visit Chief Complaint Admit Date SKIN June 16, 2024 4:3 9pm Annual (FRINGE MAKER) July 24, 2024 9:42a m Reason for [...] or prosecute any alcohol or drug abuse patient.[facility] Reason for Visit (unrecogniz ed section and content) Reason Comments Release Of Medical Records Care Teams (unrecognized sec tion and content) Clam Picker Relationship Specialty Start Date End Date Andrew Lloyd MD [address] [place] [address] PCP - General 04 Team Status: Active Member Role Status Dates Dr. Andrew Lloyd MD Family Provider Active Dr. Andrew Lloyd MD Primary Care Provider Active Team Status: Inactive Member Role Status Dates Dr. Andrew Lloyd MD Primary Care Provider Active Cristine Holder HOUSEHOLD APPLIANCE ASSEMBLER, HOUSEHOLD APPLIANCE ASSEMBLER-C Attending Provider, Referri ng Provider Active Team Status: Inactive Member Role Status Dates Dr. Andrew Lloyd MD Primary Care Provider Active Cristine Holder HOUSEHOLD APPLIANCE ASSEMBLER, HOUSEHOLD APPLIANCE ASSEMBLER-C Attending Provider Active Team Status: Inactive Member [...] section and content) DATE CREATED AUTHOR 06/27/2022 [facility] DATE CREATED AUTHOR AUTHOR'S ORGANIZ ATION 10/09/2024 [facility] Goals (unrecognized section and content) Goals may [...] BE BASED ON THE PRIMARY CLINICAL RECORDS. [facility] [employer] [facility]. provides no warranty or guarantee of the accuracy or completeness of information in this document.
== END | disposition home or self-care (01) ==
LOC: US 08:55
PROVIDERS: PCP Family Medicine; Referring Provider Nurse Practitioner Family; Visit Provider Nurse Practitioner Family
DX: R10.20 Pelvic and perineal pain unspecified side (principal)
CPT/HCPCS: 76856

== ENCOUNTER → 2025-02-10 | Outpatient (CLI) | payer OTHER, SELFPAY ==
[2025-02-09 15:41] LABS: Color, Urine Yellow (Yellow); Glucose, Dipstick Normal (Normal); Ketone-Dipstick Negative (Negative); Leukocyte Esterase-Dipstick Negative /ul (Negative); Nitrite-Dipstick Negative (Negative); Occult Blood-Urine Negative /ul (Negative); Protein-Dipstick Negative (Negative); Specific Gravity, Urine 1.020 (1.002-1.030); Urine Bilirubin Dipstick Negative (Negative)
[2025-02-09 15:50] LABS: Creatinine, Urine (random) 158.00 mg/dL (28.00-217.00); Microalbumin,Random Urine 17.0 mg/L (<20 mg/L)
[2025-02-10 09:44] LABS: Hematocrit 43.9 % (37-47); Hemoglobin 14.5 g/dL (12.0-15.0); Mean Corp Hgb Conc 33.0 g/dL (32-36); Mean Corpuscular Volume 93.6 fL (81-99); Mean Platelet Vol. 10.0 fl (6.2-12.0); Platelet Count 213 K/mm3 (150-450); RBC Distribution Width CV 11.7 % (11.6-14.6); RBC Distribution Width SD 40.1 fl (35.1-43.9); Red Blood Count 4.69 M/mm3 (4.2-5.4); White Blood Count 6.5 K/mm3 (4.4-11.0)
[2025-02-10 10:10] LABS: Anion Gap 8 (5-15); BUN 12 mg/dL (4-19); BUN/Creat Ratio 13.2 RATIO (10-20); Calcium,Total 9.5 mg/dL (7.6-11.0); Carbon Dioxide 28.1 mmol/L (21.0-32.0); Chloride 103 mmol/L (98-108); Glucose 96 mg/dL (70-99); Potassium 4.1 mmol/L (3.3-5.1)
[2025-02-10 10:16] LABS: hCG Titer Quant., Serum < 1 mIU/mL (<9 non-preg)
--- OUTSIDE RECORDS SUMMARY | 2025-02-10 10:32 | XMS RPT_ITS | CCD ---
Author Organization [facility] Care Team Providers Care Ice Plant Operator Name Role Phone Andrew Lloyd MD Primary Care Provider Moo CHOUDHURY, Dr. Bowens Primary Care Provider Aj CHOUDHURY, Dr. Wolf Attending Provider Aj CHOUDHURY, Dr. Wolf Referring Provider Moo CHOUDHURY, Dr. Bowens Referring Provider Jacqueline FINISH MACHINE TENDER-CAziza Attending Provider [phone] Apurva CHOUDHURY, Warren Attending Provider Aziza Phillips Attending Unavailable Andrew Lloyd Referring Unavailable Andrew Lloyd Primary Care Unavailable Andrew Lloyd Primary Care Unavailable Warren Mixon Attending Unavailable Maryann Rocha Referring Unavailable Maryann Rocha Attending Unavailable Andrew Lloyd Primary Care Unavailable Medications Current Medications Medication Drug Class(es) Dates Sig (Normalized) Sig (Original) [employer] (Nk) (2 sources) Start: 07-24-2024 [employer] (Nk) A ctive July 24, 2024 12:00am [...] Immunoglobon THY STIM IMMUNO <0.10 Normal 0.00-0.55 [facility] Comment on above: Result Comment: Perf ormed at: BN - [facility] [address] [id number] County Attorney: Humberto Faye MD, Phone: [phone] Performed By: #### L 506.0400, L503.6030, L400.2011, L3400.4700, L500.4050, L501.9520, L501.9187, L502.0250, L503.6550, L100.0100 #### [facility] [address] [place], [address] Absolute lymphocyte countOrd ered By: Warren Mixon on 09-29-2024 Lymphocytes Auto (Unsp spec) [#/Vol] 1.96 10*3/uL 0.83-4.51 [facility] Absolute neutrophil countOrd ered By: Warren Mixon on 09-29-2024 Neutrophils (Bld) [#/Vol] 2.9 10*3/uL 2.0-7.7 [facility] Anion gap in Serum or Plasma Ordered By: Warren Mixon on 09-29-2024 Anion gap [Moles/Vol] 12 mmol/L 5-15 [facility] Automated lymphocyte count a s percentage of total leukocytesOrdered By: Warren Mixon on 09-29-2024 Lymphocytes/100 WBC Auto (Unsp spec) 36.1 % - [facility] BUN/creatinine ratioOrdered By: Warren Mixon on 09-29-2024 Urea nitrogen/Creatinine [Mass ratio] 14.0 mg/mg 10-20 [facility] Basophil percentageOrdered B y: Warren Mixon on 09-29-2024 Basophils/100 WBC (Bld) 0.9 % 0-1 [facility] Bilirubin Test strip Ql (U)O rdered By: Warren Mixon on 09-29-2024 Bilirubin Ql (U) Negative Negative [facility] Bilirubin, totalOrdered By: Warren Mixon on 09-29-2024 Bilirubin [Mass/Vol] 0.59 mg/dL 0.00-1.30 [place] CBC W/Diff, Automatedon Absolute Lymph 1.96 X10 3/uL Normal 0.83-4.51 [facility] Comment on above: Performed By: #### L 506.0400, L503.6030, L400.2010, L3400.4700, L500.4050, L501.9520, L501.9187, L502.0250, L503.6550, L100.0100 #### [facility] [address] [place], [address] Absolute Neut 2.9 X10 3/uL Normal 2.0-7.7 [facility] Comment on above: Performed By: #### L 506.0400, L503.6030, L400.2010, L3400.4700, L500.4050, L501.9520, L501.9187, L502.0250, L503.6550, L100.0100 #### [facility] [address] [place], [address] Basophils/100 WBC (Bld) 0.9 % Normal 0-1 [facility] Comment on above: Performed By: #### L 506.0400, L503.6030, L400.2010, L3400.4700, L500.4050, L501.9520, L501.9187, L502.0250, L503.6550, L100.0100 #### [facility] [address] [place], [address] Eosinophils/100 WBC (Bld) 0.7 % Normal 0-5 [facility] Comment on above: Performed By: #### L 506.0400, L503.6030, L400.2011, L3400.4700, L500.4050, L501.9520, L501.9187, L502.0250, L503.6550, L100.0100 #### [facility] [address] [facility] [place], [address] Erythrocyte distribution width (RBC) [Ratio] 12.5 % Normal 11.6-14.6 [facility] Comment on above: Performed By: #### L 506.0400, L503.6030, L400.2010, L3400.4700, L500.4050, L501.9520, L501.9187, L502.0250, L503.6550, L100.0100 #### [facility] [address] [place], [place], [id number] (304) Hematocrit (Bld) [Volume fraction] 43.8 % Normal 37-47 [facility] Comment on above: Performed By: #### L 506.0400, L503.6030, L400.2010, L3400.4700, L500.4050, L501.9520, L501.9187, L502.0250, L503.6550, L100.0100 #### [facility] [address] [place], [address] Hemoglobin (Bld) [Mass/Vol] 14.5 g/dL Normal 12.0-15.0 [facility] Comment on above: Performed By: #### L 506.0400, L503.6030, L400.2010, L3400.4700, L500.4050, L501.9520, L501.9187, L502.0250, L503.6550, L100.0100 #### [facility] [address] [place], [address] IG% 0.200 Normal 0.0-0.9 [facility] Comment on above: Result Comment: IG% - Immature Granulocytes (promyelocytes, myelocytes and metamyelocytes) > 1% indicates that a LEFT SHIFT is Present. Performed By: #### L 506.0400, L503.6030, L400.2011, L3400.4700, L500.4050, L501.9520, L501.9187, L502.0250, L503.6550, L100.0100 #### [facility] [address] [place], [address] Lymphocytes/100 WBC (Bld) 36.1 % Normal 19-41 [facility] Comment on above: Performed By: #### L 506.0400, L503.6030, L400.2010, L3400.4700, L500.4050, L501.9520, L501.9187, L502.0250, L503.6550, L100.0100 #### [facility] [address] [place], [address] MCH (RBC) [Entitic mass] 31.0 pg Normal 27.0-32.0 [facility] Comment on above: Performed By: #### L 506.0400, L503.6030, L400.2010, L3400.4700, L500.4050, L501.9520, L501.9187, L502.0250, L503.6550, L100.0100 #### [facility] [address] [place], [address] MCHC (RBC) [Mass/Vol] 33.1 g/dL Normal 32-36 [facility] Comment on above: Performed By: #### L 506.0400, L503.6030, L400.2010, L3400.4700, L500.4050, L501.9520, L501.9187, L502.0250, L503.6550, L100.0100 #### [facility] [address] [place], [address] MCV (RBC) [Entitic vol] 93.6 fL Normal 81-99 [facility] Comment on above: Performed By: #### L 506.0400, L503.6030, L400.2010, L3400.4700, L500.4050, L501.9520, L501.9187, L502.0250, L503.6550, L100.0100 #### [facility] [address] [place], [address] Monocytes/100 WBC (Bld) 8.8 % Normal 0-10 [facility] Comment on above: Performed By: #### L 506.0400, L503.6030, L400.2010, L3400.4700, L500.4050, L501.9520, L501.9187, L502.0250, L503.6550, L100.0100 #### [facility] [address] [place], [address] Neutrophils/100 WBC (Bld) 53.3 % Normal 47-70 [facility] Comment on above: Performed By: #### L 506.0400, L503.6030, L400.2010, L3400.4700, L500.4050, L501.9520, L501.9187, L502.0250, L503.6550, L100.0100 #### [facility] [address] [place], [address] Nucleated RBC (Bld) [#/Vol] 0 10*3/uL Normal 0-5 [facility] Comment on above: Performed By: #### L 506.0400, L503.6030, L4.2010, L3400.4700, L500.4050, L501.9520, L501.9187, L502.0250, L503.6550, L100.0100 #### [facility] [address] [place], [address] Platelet mean volume (Bld) [Entitic vol] 10.7 fL Normal 6.2-12.0 [facility] Comment on above: Performed By: #### L 506.0400, L503.6030, L400.2011, L3400.4700, L500.4050, L501.9520, L501.9187, L502.0250, L503.6550, L100.0100 #### [facility] [address] [place], [address] Platelets (Bld) [#/Vol] 208 10*3/uL Normal 150-450 [facility] Comment on above: Performed By: #### L 506.0400, L503.6030, L400.2010, L3400.4700, L500.4050, L501.9520, L501.9187, L502.0250, L503.6550, L100.0100 #### [facility] [address] [place], [address] RBC (Bld) [#/Vol] 4.68 10*6/uL Normal 4.2-5.4 [facility] Comment on above: Performed By: #### L 506.0400, L503.6030, L400.2010, L3400.4700, L500.4050, L501.9520, L501.9187, L502.0250, L503.6550, L100.0100 #### [facility] [address] [place], [address] RDW SD 43.3 fl Normal 35.1-43.9 [facility] Comment on above: Performed By: #### L 506.0400, L503.6030, L400.2010, L3400.4700, L500.4050, L501.9520, L501.9187, L502.0250, L503.6550, L100.0100 #### [facility] [address] [place], [address] WBC (Bld) [#/Vol] 5.4 10*3/uL Normal 4.4-11.0 [facility] Comment on above: Performed By: #### L 506.0400, L503.6030, L400.2010, L3400.4700, L500.4050, L501.9520, L501.9187, L502.0250, L503.6550, L100.0100 #### [facility] [address] [place], [address] Carbon dioxide, total [Moles /volume] in Central venous bloodOrdered By: Warren Mixon on 09-29-2024 CO2 [Moles/Vol] 24.9 mmol/L 21.0-32.0 [facility] Chloride assayOrdered By: Jimbo Mixon on 09-29-2024 Chloride [Moles/Vol] 104 mmol/L 98-108 [place] [facility] Metabolic Prof ilon 09-29-2024 Albumin [Mass/Vol] 4.6 g/dL Normal 3.5-5.0 [facility] Comment on above: Performed By: #### L 506.0400, L503.6030, L4.2010, L3400.4700, L500.4050, L501.9520, L501.9187, L502.0250, L503.6550, L100.0100 #### [facility] [address] [place], [address] Albumin/Globulin [Mass ratio] 1.6 {ratio} Normal 0.9-2.4 [facility] Comment on above: Performed By: #### L 506.0400, L503.6030, L400.2010, L3400.4700, L500.4050, L501.9520, L501.9187, L502.0250, L503.6550, L100.0100 #### [facility] [address] [place], [address] ALK PHOS 29 U/L Low 35-104 [facility] Comment on above: Performed By: #### L 506.0400, L503.6030, L4, L3400.4700, L500.4050, L501.9520, L501.9187, L502.0250, L503.6550, L100.0100 #### [facility] [address] [place], [place], [id number] (904) ALT [Catalytic activity/Vol] 12 U/L Normal <=34 [facility] Comment on above: Performed By: #### L 506.0400, L503.6030, L400.2010, L3400.4700, L500.4050, L501.9520, L501.9187, L502.0250, L503.6550, L100.0100 #### [facility] [address] [place], [address] AST [Catalytic activity/Vol] 14 U/L Normal <=31 [facility] Comment on above: Performed By: #### L 506.0400, L503.6030, L4, L3400.4700, L500.4050, L501.9520, L501.9187, L502.0250, L503.6550, L100.0100 #### [facility] [address] [place], [place], [id number] [phone] Bilirubin [Mass/Vol] 0.59 mg/dL Normal 0.00-1.30 [place] Comment on above: Performed By: #### L 506.0400, L503.6030, L4, L3400.4700, L500.4050, L501.9520, L501.9187, L502.0250, L503.6550, L100.0100 #### [facility] [address] [place], [address] BUN/CRE 14.0 RATIO Normal 10-20 [facility] Comment on above: Performed By: #### L 506.0400, L503.6030, L4, L3400.4700, L500.4050, L501.9520, L501.9187, L502.0250, L503.6550, L100.0100 #### [facility] [address] [place], [address] Calcium [Mass/Vol] 9.5 mg/dL Normal 7.6-11.0 [facility] Comment on above: Performed By: #### L 506.0400, L503.6030, L400.2010, L3400.4700, L500.4050, L501.9520, L501.9187, L502.0250, L503.6550, L100.0100 #### [facility] [address] [place], [address] Chloride [Moles/Vol] 104 mmol/L Normal 98-108 [place] Comment on above: Performed By: #### L 506.0400, L503.6030, L4, L3400.4700, L500.4050, L501.9520, L501.9187, L502.0250, L503.6550, L100.0100 #### [facility] [address] [place], [address] CO2 [Moles/Vol] 24.9 mmol/L Normal 21.0-32.0 [facility] Comment on above: Performed By: #### L 506.0400, L503.6030, L4.2010, L3400.4700, L500.4050, L501.9520, L501.9187, L502.0250, L503.6550, L100.0100 #### [facility] [address] [place], [address] Creatinine [Mass/Vol] 0.81 mg/dL Normal 0.70-1.20 [facility] Comment on above: Performed By: #### L 506.0400, L503.6030, L4.2010, L3400.4700, L500.4050, L501.9520, L501.9187, L502.0250, L503.6550, L100.0100 #### [facility] [address] [place], [address] GAP 12 Normal 5-15 [facility] Comment on above: Performed By: #### L 506.0400, L503.6030, L4.2010, L3400.4700, L500.4050, L501.9520, L501.9187, L502.0250, L503.6550, L100.0100 #### [facility] [address] [place], [address] GFR/1.73 sq M.predicted among non-blacks MDRD (S/P/Bld) [Vol rate/Area] 107 mL/min/{1.73_m2} Normal >60 [facility] Comment on above: Result Comment: mL/m in/1.73m2 CKD-EPI Creatinine Equation (2020) Performed By: #### L 506.0400, L503.6030, L4, L3400.4700, L500.4050, L501.9520, L501.9187, L502.0250, L503.6550, L100.0100 #### [facility] [address] [place], [address] Globulin (S) [Mass/Vol] 2.9 g/dL Normal 2.2-4.2 [facility] Comment on above: Performed By: #### L 506.0400, L503.6030, L4.2010, L3400.4700, L500.4050, L501.9520, L501.9187, L502.0250, L503.6550, L100.0100 #### [facility] [address] [place], [address] Glucose [Mass/Vol] 85 mg/dL Normal 70-99 [facility] Comment on above: Performed By: #### L 506.0400, L503.6030, L4, L3400.4700, L500.4050, L501.9520, L501.9187, L502.0250, L503.6550, L100.0100 #### [facility] [address] [place], [address] Potassium [Moles/Vol] 3.7 mmol/L Normal 3.3-5.1 [facility] Comment on above: Performed By: #### L 506.0400, L503.6030, L400.2010, L3400.4700, L500.4050, L501.9520, L501.9187, L502.0250, L503.6550, L100.0100 #### [facility] [address] [place], [address] Sodium [Moles/Vol] 140 mmol/L Normal 133-145 [facility] Comment on above: Performed By: #### L 506.0400, L503.6030, L4.2010, L3400.4700, L500.4050, L501.9520, L501.9187, L502.0250, L503.6550, L100.0100 #### [facility] [address] [place], [address] T PROT 7.4 g/dL Normal 5.9-8.4 [facility] Comment on above: Performed By: #### L 506.0400, L503.6030, L4.2010, L3400.4700, L500.4050, L501.9520, L501.9187, L502.0250, L503.6550, L100.0100 #### [facility] [address] [facility] [place], [address] Urea nitrogen [Mass/Vol] 11 mg/dL Normal 4-19 [facility] Comment on above: Performed By: #### L 506.0400, L503.6030, L4, L3400.4700, L500.4050, L501.9520, L501.9187, L502.0250, L503.6550, L100.0100 #### [facility] [address] [place], [address] Eosinophil percentageOrdered By: Warren Apurva on 09-29-2024 Eosinophils/100 WBC (Bld) 0.7 % 0-5 [facility] Erythrocyte distribution wid th ratioOrdered By: Warren Mixon on 09-29-2024 Erythrocyte distribution width (RBC) [Ratio] 12.5 % 11.6-14.6 [facility] Erythrocyte distribution wid th standard deviationOrdered By: [facility] Apurva on 09-29-2024 Erythrocyte distribution width (RBC) [Ratio] 43.3 fl 35.1-43.9 [facility] Ferritinon 09-29-2024 Ferritin [Mass/Vol] 79 ng/mL Normal 22-378 [facility] Comment on above: Performed By: #### L 506.0400, L503.6030, L400.2011, L3400.4700, L500.4050, L501.9520, L501.9187, L502.0250, L503.6550, L100.0100 #### [facility] [address] [place], [place], [id number] Glomerular filtration rate ( GFR) estimation/1.73 sq m using serum, plasma, or whole bOrdered By: Warren Mixon on 09-29-2024 GFR/1.73 sq M.predicted among non-blacks MDRD (S/P/Bld) [Vol rate/Area] 107 mL/min/{1.73_m2} >60 [facility] Comment on above: mL/min/1.73m2 CKD-EP I Creatinine Equation (2020) Hematocrit Auto (Bld) [Volum e fraction]Ordered By: Warren Mixon on 09-29-2024 Hematocrit (Bld) [Volume fraction] 43.8 % 37-47 [facility] Hemoglobin measurementOrdere d By: Warren Mixon on 09-29-2024 Hemoglobin (Bld) [Mass/Vol] 14.5 g/dL 12.0-15.0 [facility] Immature granulocytes/100 WB C Auto (Bld)Ordered By: Warren Mixon on 09-29-2024 Immature granulocytes/100 WBC (Bld) 0.200 % 0.0-0.9 [facility] Comment on above: IG% - Immature Granu locytes (promyelocytes, myelocytes and metamyelocytes) > 1% indicates that a LEFT SHIFT is Present. Iron measurement (mass/mass) Ordered By: Warren Mixon on 09-29-2024 Iron (Unsp spec) [Mass/Mass] 102 ug/dL 50-170 [facility] Iron+Iron Binding Capacityon 09-29-2024 Iron [Mass/Vol] 102 ug/dL Normal 50-170 [facility] Comment on above: Performed By: #### L 506.0400, L503.6030, L400.2010, L3400.4700, L500.4050, L501.9520, L501.9187, L502.0250, L503.6550, L100.0100 #### [facility] [address] [place], [address] IRON SATURATION 34.0 Normal 13-59 [facility] Comment on above: Performed By: #### L 506.0400, L503.6030, L400.2010, L3400.4700, L500.4050, L501.9520, L501.9187, L502.0250, L503.6550, L100.0100 #### [facility] [address] [place], [address] TIBC 303 ug/dL Normal 250-450 [facility] Comment on above: Performed By: #### L 506.0400, L503.6030, L400.2010, L3400.4700, L500.4050, L501.9520, L501.9187, L502.0250, L503.6550, L100.0100 #### [facility] [address] [place], [address] UIBC 201 ug/dL Low 228-428 [facility] Comment on above: Performed By: #### L 506.0400, L503.6030, L400.2010, L3400.4700, L500.4050, L501.9520, L501.9187, L502.0250, L503.6550, L100.0100 #### [facility] [address] [place], [address] Ketones Test strip Ql (U)Ord ered By: Warren Mixon on 09-29-2024 Ketones Ql (U) Negative Negative [facility] L501.9187on 09-29-2024 T3 Total 0.90 ng/mL Normal 0.80-2.00 [facility] Comment on above: Performed By: #### L 506.0400, L503.6030, L400.2010, L3400.4700, L500.4050, L501.9520, L501.9187, L502.0250, L503.6550, L100.0100 #### [facility] [address] [facility] [place], [address] Laboratory - Chemistry and C hemistry - challengeOrdered By: Warren Mixon on 09-29-2024 AST [Catalytic activity/Vol] 14 U/L <32 [facility] MCV (mean corpuscular volume ) determinationOrdered By: Warren Mixon on 09-29-2024 MCV (RBC) [Entitic vol] 93.6 fL 81-99 [facility] Mean corpuscular hemoglobin (MCH) determinationOrdered By: Warren Mixon on 09-29-2024 MCH (RBC) [Entitic mass] 31.0 pg 27.0-32.0 [facility] Mean corpuscular hemoglobin concentration (MCHC) determinationOrdered By: Warren Mixon on 09-29-2024 MCHC (RBC) [Mass/Vol] 33.1 g/dL 32-36 [facility] Mean platelet volume determi nationOrdered By: Warren Mixon on 09-29-2024 Platelet mean volume (Bld) [Entitic vol] 10.7 fL 6.2-12.0 [facility] Microalb:Creat Ratio,Random URon 09-29-2024 Creatinine [Mass/Vol] 183.00 mg/dL Normal 28.00-217.00 [facility] Comment on above: Performed By: #### L 506.0400, L503.6030, L400.2010, L3400.4700, L500.4050, L501.9520, L501.9187, L502.0250, L503.6550, L100.0100 #### [facility] [address] [facility] [place], [place], [id number] MALB:CREAT UNABLE TO CALCULATE Normal <30 mg/g CRE [facility] Comment on above: Performed By: #### L 506.0400, L503.6030, L400.2010, L3400.4700, L500.4050, L501.9520, L501.9187, L502.0250, L503.6550, L100.0100 #### [facility] [address] [facility] [place], [place], [id number] MICROALBUMIN,UR < 12.0 Normal <20 mg/L [facility] Comment on above: Performed By: #### L 506.0400, L503.6030, L400.2010, L3400.4700, L500.4050, L501.9520, L501.9187, L502.0250, L503.6550, L100.0100 #### [facility] [address] [facility] [place], [place], [id number] Microalbumin/creat ratio urO rdered By: Warren Mixon on 09-29-2024 Urine microalbumin/creatinine ratio measurement UNABLE TO CALCULATE mg/g CRE <30 [facility] Monocyte percentageOrdered B y: Warren Mixon on 09-29-2024 Monocytes/100 WBC (Bld) 8.8 % 0-10 [facility] Neutrophil percentageOrdered By: Warren Mixon on 09-29-2024 Neutrophils/100 WBC (Bld) 53.3 % 47-70 [facility] Nitrite Test strip Ql (U)Ord ered By: Warren Mixon on 09-29-2024 Nitrite Ql (U) Negative Negative [facility] No Panel InformationOrdered By: Warren Mixon on 09-29-2024 Unsaturated Iron Binding Capacity 201 ug/dL Low 228-428 [facility] Nucleated red blood cell per centageOrdered By: Warren Mixon on 09-29-2024 Nucleated RBC/100 WBC (Bld) [Ratio] 0 % 0-5 [facility] Platelet countOrdered By: Jimbo Mixon on 09-29-2024 Platelets (Bld) [#/Vol] 208 10*3/uL 150-450 [facility] Potassium measurement (mass/ volume)Ordered By: Warren Mixon on 09-29-2024 Potassium (Unsp spec) [Mass/Vol] 3.7 mmol/L 3.3-5.1 [facility] Protein Test strip Ql (U)Ord ered By: Warren Mixon on 09-29-2024 Protein Ql (U) Negative Negative [facility] RBC Auto (Bld) [#/Vol]Ordere d By: Warren Mxion on 09-29-2024 RBC (Bld) [#/Vol] 4.68 10*6/uL 4.2-5.4 [facility] Random urine creatinine rolly urement (mass/volume)Ordered By: Warren Mixon on 09-29-2024 Creatinine Unsp time (U) [Mass/Vol] 183.00 mg/dL 28.00-217.00 [facility] Serum creatinine measurement (mass/volume)Ordered By: Warren Mixon on 09-29-2024 Creatinine [Mass/Vol] 0.81 mg/dL 0.70-1.20 [facility] Serum globulin measurementOr dered By: Warren Mixon on 09-29-2024 Globulin (S) [Mass/Vol] 2.9 g/dL 2.2-4.2 [facility] Serum glucose measurement (m ass/volume)Ordered By: Warren Mixon on 09-29-2024 Glucose [Mass/Vol] 85 mg/dL 70-99 [facility] Serum or plasma alanine urias otransferase (ALT) measurementOrdered By: Warren Mixon on 09-29-2024 ALT [Catalytic activity/Vol] 12 U/L <35 [facility] Serum or plasma albumin rolly urement (mass/volume)Ordered By: Warren Mixon on 09-29-2024 Albumin [Mass/Vol] 4.6 g/dL 3.5-5.0 [facility] Serum or plasma albumin/glob ulin mass ratioOrdered By: Warren Mixon on 09-29-2024 Albumin/Globulin [Mass ratio] 1.6 {ratio} 0.9-2.4 [facility] Serum or plasma alkaline donovan sphatase measurementOrdered By: Warren Mixon on 09-29-2024 ALP [Catalytic activity/Vol] 29 U/L Low 35-104 [facility] Serum or plasma calcium rolly urement (mass/volume)Ordered By: Warren Mixon on 09-29-2024 Calcium [Mass/Vol] 9.5 mg/dL 7.6-11.0 [facility] Serum or plasma ferritin kaelyn surement (mass/volume)Ordered By: Warren Mixon on 09-29-2024 Ferritin [Mass/Vol] 79 ng/mL 22-378 [facility] Serum or plasma iron saturat ion measurement (mass fraction)Ordered By: Warren Mixon on 09-29-2024 Iron saturation [Mass fraction] 34.0 % 13-59 [facility] Serum or plasma triiodothyro nine (T3) measurement (mass/volume)Ordered By: Warren Mixon on 09-29-2024 T3 [Mass/Vol] 0.90 ng/mL 0.80-2.00 [facility] Serum or plasma urea nitroge n measurement (mass/volume)Ordered By: Warren Mixon on 09-29-2024 Urea nitrogen [Mass/Vol] 11 mg/dL 4-19 [facility] Sodium levelOrdered By: Carmelita Mixon on 09-29-2024 Sodium [Moles/Vol] 140 mmol/L 133-145 [facility] T4 Free Directon 09-29-2024 T4 FREE DIRECT 1.10 ng/dL Normal 0.76-1.46 [facility] Comment on above: Order Comment: N Performed By: #### L 506.0400, L503.6030, L400.2010, L3400.4700, L500.4050, L501.9520, L501.9187, L502.0250, L503.6550, L100.0100 #### [facility] [address] [place], [address] T4 freeOrdered By: Warren harrison on 09-29-2024 Free T4 [Mass/Vol] 1.10 ng/dL 0.76-1.46 [facility] TSH DL <= 0.005 mIU/L QnOrde red By: Warren Mixon on 09-29-2024 TSH Qn 0.631 uIU/mL 0.300-4.200 [facility] Thyroid Stim Hormone (TSH)on 09-29-2024 TSH 0.631 uIU/mL Normal 0.300-4.200 [facility] Comment on above: Performed By: #### L 506.0400, L503.6030, L400, L3400.4700, L500.4050, L501.9520, L501.9187, L502.0250, L503.6550, L100.0100 #### [facility] [address] [place], [address] Thyroid stimulating immunogl obulins detectionOrdered By: Warren Mixon on 09-29-2024 Thyroid stimulating immunoglobulins Ql (S) <0.10 IU/L 0.00-0.55 [facility] Comment on above: Performed at: [address] [id number] Director: Humberto Faye MD, Phone: [phone] Total proteinOrdered By: Devika Mixon on 09-29-2024 Protein [Mass/Vol] 7.4 g/dL 5.9-8.4 [facility] Urinalysis, Routine (Dipstic k)on 09-29-2024 BILIRUBIN URINE Negative Normal Negative [facility] Comment on above: Order Comment: Urine , Random Performed By: #### L 506.0400, L503.6030, L4.2010, L3400.4700, L500.4050, L501.9520, L501.9187, L502.0250, L503.6550, L100.0100 #### [facility] [address] [place], [address] Clarity (U) Clear Normal Clear [facility] Comment on above: Order Comment: Urine , Random Performed By: #### L 506.0400, L503.6030, L400.2010, L3400.4700, L500.4050, L501.9520, L501.9187, L502.0250, L503.6550, L100.0100 #### [facility] [address] [place], [place], [id number] Color (U) Yellow Normal Yellow [facility] Comment on above: Order Comment: Urine , Random Performed By: #### L 506.0400, L503.6030, L4.2010, L3400.4700, L500.4050, L501.9520, L501.9187, L502.0250, L503.6550, L100.0100 #### [facility] [address] [place], [place], [id number] [phone] GLUCOSE, UR Normal Normal Normal [facility] Comment on above: Order Comment: Urine , Random Performed By: #### L 506.0400, L503.6030, L400.2010, L3400.4700, L500.4050, L501.9520, L501.9187, L502.0250, L503.6550, L100.0100 #### [facility] [address] [place], [address] KETONE UR Negative Normal Negative [facility] Comment on above: Order Comment: Urine , Random Performed By: #### L 506.0400, L503.6030, L400.2010, L3400.4700, L500.4050, L501.9520, L501.9187, L502.0250, L503.6550, L100.0100 #### [facility] [address] [place], [address] LEUK ESTERASE Negative Normal Negative [facility] Comment on above: Order Comment: Urine , Random Performed By: #### L 506.0400, L503.6030, L400.2010, L3400.4700, L500.4050, L501.9520, L501.9187, L502.0250, L503.6550, L100.0100 #### [facility] [address] [place], [address] Nitrite Ql (U) Negative Normal Negative [facility] Comment on above: Order Comment: Urine , Random Performed By: #### L 506.0400, L503.6030, L4.2010, L3400.4700, L500.4050, L501.9520, L501.9187, L502.0250, L503.6550, L100.0100 #### [facility] [address] [place], [address] OCCULT BLOOD-UR Negative Normal Negative [facility] Comment on above: Order Comment: Urine , Random Performed By: #### L 506.0400, L503.6030, L4.2010, L3400.4700, L500.4050, L501.9520, L501.9187, L502.0250, L503.6550, L100.0100 #### [facility] [address] [place], [address] pH UR 7.0 Normal 5.0 - 8.0 [facility] Comment on above: Order Comment: Urine , Random Performed By: #### L 506.0400, L503.6030, L4.2010, L3400.4700, L500.4050, L501.9520, L501.9187, L502.0250, L503.6550, L100.0100 #### [facility] [address] [place], [address] PROT DIPSTX Negative Normal Negative [facility] Comment on above: Order Comment: Urine , Random Performed By: #### L 506.0400, L503.6030, L400.2010, L3400.4700, L500.4050, L501.9520, L501.9187, L502.0250, L503.6550, L100.0100 #### [facility] [address] [place], [place], [id number] SP.GR. DIPSTX 1.015 Normal 1.002-1.030 [facility] Comment on above: Order Comment: Urine , Random Performed By: #### L 506.0400, L503.6030, L400.2010, L3400.4700, L500.4050, L501.9520, L501.9187, L502.0250, L503.6550, L100.0100 #### [facility] [address] [place], [place], [address] UROBILI Normal Normal Normal [facility] Comment on above: Order Comment: Urine , Random Performed By: #### L 506.0400, L503.6030, L4.2010, L3400.4700, L500.4050, L501.9520, L501.9187, L502.0250, L503.6550, L100.0100 #### [facility] [address] [place], [place], [id number] Urine albumin measurement [facility] detection limit of 20 mg/L or less (mass/volume)Ordered By: Warren Mixon on 09-29-2024 Albumin DL <= 20 mg/L (U) [Mass/Vol] < 12.0 mg/L <20 mg/L [facility] Urine clarityOrdered By: Devika Mixon on 09-29-2024 Clarity (U) Clear Clear [facility] Urine color determinationOrd ered By: Warren Mixon on 09-29-2024 Color (U) Yellow Yellow [facility] Urine glucose detectionOrder ed By: Warren Mixon on 09-29-2024 Glucose Ql (U) Normal mg/dl Normal [facility] Urine leukocyte esterase det ection by dipstickOrdered By: Warren Mixon on 09-29-2024 Leukocyte esterase Test strip Ql (U) Negative Negative [facility] Urine pHOrdered By: Warren blakely on 09-29-2024 pH (U) 7.0 [pH] 5.0 - 8.0 [facility] Urine specific gravity measu rementOrdered By: Warren Mixon on 09-29-2024 Specific gravity (U) [Rel density] 1.015 1.002-1.030 [facility] Urine urobilinogen measureme ntOrdered By: Warren Mixon on 09-29-2024 Urobilinogen Ql (U) Normal mg/dl Normal [facility] White blood cell (WBC) count Ordered By: Warren Mixon on 09-29-2024 WBC (Bld) [#/Vol] 5.4 10*3/uL 4.4-11.0 [facility] Yard Hand Office Visit Reporton 07-24-2024 Yard Hand Office Visit Report [facility] [address], [address] [place] [address] OFFICE VISIT Date of Service: 07/24/24 MR#: [id number] Acct: [id number] Name: DARIAN CAMPBELL Rep #: [id number] : 2005 Provider: PABLO Heath Age/Sex: 19/F [place] [facility] [place]: Signed Intake Vital Signs 05/09/17 09:26 07/24/24 09:45 Height 5 ft 10 in 5 ft 11 in Weight: 183 lb BMI 25.5 BP 104/66 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 Normal [facility] Thyroid Peroxidase ABon - THYR PEROX AB 36 IU/mL High 0-34 [facility] Comment on above: Result Comment: Perf ormed at: - [facility] [address] [id number] County Attorney: Joseph Bernabe PhD, Phone: [phone] Performed By: #### L 506.0400, L503.4791, L400.2010, L3400.4700, L500.4050, L501.9520, L501.9187, L502.0250, L503.9250, L100.0100 #### [facility] [address] [place], [place], [address] L501.0895on 06-17-2024 Calcium [Mass/Vol] 9.6 mg/dL Normal 7.6-11.0 [facility] Comment on above: Performed By: #### L 506.0400, L503.6030, L400.2010, L3400.4700, L500.4050, L501.9520, L501.9187, L502.0250, L503.6550, L100.0100 #### [facility] [address] [place], [address] Ferritinon 06-16-2024 Ferritin [Mass/Vol] 81 ng/mL Normal 22-378 [facility] Comment on above: Performed By: #### L 506.0400, L503.6030, L400.2010, L3400.4700, L500.4050, L501.9520, L501.9187, L502.0250, L503.6550, L100.0100 #### [facility] [address] [place], [address] Free T3on 06-16-2024 Free T3 [Mass/Vol] 3.0 pg/mL Normal 2.18-3.98 [facility] Comment on above: Performed By: #### L 506.0400, L503.6030, L4.2010, L3400.4700, L500.4050, L501.9520, L501.9187, L502.0250, L503.6550, L100.0100 #### [facility] [address] [place], [address] Free [id number] By: Andrew abernathy on 06-16-2024 Free T3 [Mass/Vol] 3.0 pg/mL 2.18-3.98 [facility] PTHINon 06-16-2024 PTH 28 pg/mL Normal 11-61 [facility] Comment on above: Performed By: #### L 506.0400, L503.6030, L400.2010, L3400.4700, L500.4050, L501.9520, L501.9187, L502.0250, L503.6550, L100.0100 #### [facility] [address] [place], [place], [address] Serum or plasma calcium rolly urement (mass/volume)Ordered By: Andrew Lloyd on 06-16-2024 Calcium [Mass/Vol] 9.6 mg/dL 7.6-11.0 [facility] Serum or plasma ferritin kaelyn surement (mass/volume)Ordered By: Andrew Lloyd on 06-16-2024 Ferritin [Mass/Vol] 81 ng/mL 22-378 [facility] Serum or plasma thyroperoxid ase antibody assay (units/volume)Ordered By: Andrew Lloyd on 06-16-2024 TPO Ab Qn 36 [IU]/mL High 0-34 [facility] Comment on above: Performed at: [place] [id number] Director: Joseph Bernabe PhD, Phone: [phone] T4 Free Directon 06-16-2024 T4 FREE DIRECT 1.20 ng/dL Normal 0.76-1.46 [facility] Comment on above: Performed By: #### L 506.0400, L503.6030, L4, L3400.4700, L500.4050, L501.9520, L501.9187, L502.0250, L503.6550, L100.0100 #### [facility] [address] [place], [place], [address] T4 freeOrdered By: Andrew abernathy on 06-16-2024 Free T4 [Mass/Vol] 1.20 ng/dL 0.76-1.46 [facility] TSH DL <= 0.005 mIU/L QnOrde red By: Andrew Lloyd on 06-16-2024 TSH Qn 1.250 uIU/mL 0.300-4.200 [facility] Thyroid Stim Hormone (TSH)on 06-16-2024 TSH 1.250 uIU/mL Normal 0.300-4.200 [facility] Comment on above: Performed By: #### L 506.0400, L503.6030, L4.2010, L3400.4700, L500.4050, L501.9520, L501.9187, L502.0250, L503.6550, L100.0100 #### [facility] [address] [place], [address] Laboratory - Chemistry and C hemistry - challengeOrdered By: Cristine Holder on 02-24-2023 Cobalamin (Vitamin B12) [Mass/Vol] 439 pg/mL 211-911 [facility] Magnesium [Mass/Vol] 2.2 mg/dL 1.6-2.6 [...] Auto (Unsp spec) [#/Vol] 2.79 10*3/uL 0.83-4.51 [facility] Basophil percentageOrdered B y: Cristine Holder on 02-05-2023 Basophils/100 WBC (Bld) 0.8 % 0-1 [facility] Bilirubin [Mass/Vol] 0.50 mg/dL 0.20-1.00 [place] Comment on above: For patients on eltr ombopag therapy, use of Dimension [place] TBIL is not recommended. Chloride [Moles/Vol] 102 mmol/L 98-107 [place] Eosinophils/100 WBC (Bld) 0.4 % 0-3 [facility] Glucose [Mass/Vol] 69 mg/dL 74-106 [facility] Neutrophils (Bld) [#/Vol] 5.4 10*3/uL 2.0-7.7 [facility] Neutrophils/100 WBC (Bld) 60.1 % 34-64 [facility] Potassium [Moles/Vol] 3.8 mmol/L 3.5-5.1 [facility] Protein [Mass/Vol] 8.1 g/dL 6.4-8.2 [facility] Sodium [Moles/Vol] 139 mmol/L 136-145 [facility] WBC (Bld) [#/Vol] 9.1 10*3/uL 4.5-13.0 [facility] Blood erythrocytes count (nu mber/volume)Ordered By: Cristine Holder on 02-05-2023 RBC (Bld) [#/Vol] 4.90 10*6/uL 4.1-4.8 [facility] Blood hemoglobin measurement (mass/volume)Ordered By: Cristine Holder on 02-05-2023 Hemoglobin (Bld) [Mass/Vol] 14.8 g/dL 12.0-15.0 [facility] Blood lymphocytes/100 leukoc ytesOrdered By: Cristine Holder on 02-05-2023 Lymphocytes/100 WBC (Bld) 30.8 % 25-45 [facility] Blood monocytes/100 leukocyt esOrdered By: Cristine Holder on 02-05-2023 Monocytes/100 WBC (Bld) 7.6 % 3-6 [facility] Blood platelet mean volumeOr dered By: Cristine Holder on 02-05-2023 Platelet mean volume (Bld) [Entitic vol] 10.6 fL 6.2-12.0 [facility] Determination of erythrocyte mean corpuscular volume (MCV)Ordered By: Cristine Holder on 02-05-2023 MCV (RBC) [Entitic vol] 91.6 fL 78-96 [facility] Hematocrit Auto (Bld) [Volum e fraction]Ordered By: Cristine Holder on 02-05-2023 Hematocrit (Bld) [Volume fraction] 44.9 % 37-46 [facility] Iron measurement (mass/mass) Ordered By: Cristine Holder on 02-05-2023 Iron (Unsp spec) [Mass/Mass] 65 ug/dL 50-170 [facility] Laboratory - Chemistry and C hemistry - challengeOrdered By: Cristine Holder on 02-05-2023 ALP [Catalytic activity/Vol] 29 U/L 47-119 [facility] ALT [Catalytic activity/Vol] 13 U/L 13-56 [facility] CO2 [Moles/Vol] 32.0 mmol/L 21.0-32.0 [facility] Cobalamin (Vitamin B12) [Mass/Vol] 384 pg/mL 211-911 [facility] Free T4 [Mass/Vol] 0.98 ng/dL 0.76-1.46 [facility] Globulin (S) [Mass/Vol] 3.9 g/dL 2.2-4.2 [facility] Urea nitrogen/Creatinine [Mass ratio] 12.8 mg/mg 10-20 [facility] Laboratory - Hematology and Cell countsOrdered By: Cristine Holder on 02-05-2023 Erythrocyte distribution width (RBC) [Entitic vol] 38.3 fL 35.1-43.9 [facility] Erythrocyte distribution width (RBC) [Ratio] 11.4 % 11.6-14.6 [facility] Immature granulocytes/100 WBC (Bld) 0.300 % 0.0-0.9 [facility] Comment on above: IG% - Immature Granu locytes (promyelocytes, myelocytes and metamyelocytes) > 1% indicates that a LEFT SHIFT is Present. MCH (RBC) [Entitic mass] 30.2 pg 25.0-35.0 [facility] Nucleated RBC/100 WBC (Bld) [Ratio] 0 % 0-5 [facility] MCHC Auto (RBC) [Mass/Vol]Or dered By: Cristine Holder on 02-05-2023 MCHC (RBC) [Mass/Vol] 33.0 g/dL 32-36 [facility] No Panel InformationOrdered By: Cristine Holder on 02-05-2023 Estimated GFR (MDRD) Amer 99 mL/min >60 [facility] Comment on above: GFR Calc Estimated GFR (MDRD) Non-Af Amer 82 mL/min >60 [facility] Comment on above: Non- GFR Calc Free Triiodothyronine (T3) pg/dL 2.8 pg/mL 2.18-3.98 [facility] Thyroid Stimulating Hormone (TSH) 0.62 uIU/mL 0.358-3.74 [facility] Platelets bldOrdered By: Juan Holder on 02-05-2023 Platelets (Bld) [#/Vol] 314 10*3/uL 150-450 [facility] Serum or plasma albumin rolly urement (mass/volume)Ordered By: Cristine Holder on 02-05-2023 Albumin [Mass/Vol] 4.2 g/dL 3.2-5.0 [facility] Serum or plasma albumin/glob ulin mass ratioOrdered By: Cristine Holder on 02-05-2023 Albumin/Globulin [Mass ratio] 1.1 {ratio} 0.9-2.4 [facility] Serum or plasma calcium rolly urement (mass/volume)Ordered By: Cristine Holder on 02-05-2023 Calcium [Mass/Vol] 9.8 mg/dL 8.5-10.1 [facility] Serum or plasma creatinine m easurement (mass/volume)Ordered By: Cristine Holder on 02-05-2023 Creatinine [Mass/Vol] 0.94 mg/dL 0.55-1.02 [facility] Comment on above: The validity of the calculated GFR & GFRAA in patients over 70 years has not been determined. Clinical correlation is essential. Serum or plasma ferritin kaelyn surement (mass/volume)Ordered By: Cristine Holder on 02-05-2023 Ferritin [Mass/Vol] 99 ng/mL 8-252 [facility] Serum or plasma urea nitroge n measurement (mass/volume)Ordered By: Cristine Holder on 02-05-2023 Urea nitrogen [Mass/Vol] 12 mg/dL 7-18 [facility] Thin prep Papanicolaou smear with manual screeningOrdered By: Cristine Holder on 02-05-2023 Thin prep Papanicolaou smear with manual screening 8 U/L 15-37 [facility] Thin prep Papanicolaou smear with manual screening 5 5-15 [facility] CNPNon 06-26-2022 [facility]ICON Telephone (PEDThinkr) DARIAN CAMPBELL ([id number]) 3 F Date Time Provider Department 06/26/22 ANDREW LLOYD During your visit today, we recorded the following information about you: Teofilo Benton RN 06/26/2022 2:59 PM Signed 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 Teofilo Benton RN Allergies As of Date: 06/26/2022 (No Known Allergies) Date Reviewed: 03/16/2020 Reviewed by: Sana Sterling Ma - Fully Assessed Reason for Visit: Release Of Medical Records [2017] Problem List As Of Date: 06/26/2022 (None) Encounter Status:Closed by TEOFILO BENTON RN on 06/26/22 Normal [facility] Vital Signs Date Time Vital Sign Value Performing Clinician Roccoi tucker 07-24-2024 09:45-0400 Body height 180.[address] Andrew Lloyd MD Work Phone: [facility] 07-24-2024 09:45-0400 Body mass index (BMI) [Ratio] 25.5 kg/m2 Dr. Andrew Lloyd MD Work Phone: [facility] 07-24-2024 09:45-04[address] Body weight [address] Andrew Lloyd MD Work Phone: [facility] 07-24-2024 09:45-0400 Diastolic blood pressure 66 mm[Hg] Dr. Andrew Lloyd MD Work Phone: [facility] 07-24-2024 09:45-0400 Systolic blood pressure 104 mm[Hg] Dr. Andrew Lloyd MD Work Phone: [facility] Encounters Encounter Date Encounter Type Care Provider Facility Start: 09-29-2024 End: 09-29-[address] Andrew Lloyd MD Work Phone: -Laboratory [facility] Start: 09-29-2024 End: 09-29-[address] Warren Mixon MD -Laboratory [facility] Start: 09-29-2024 End: 09-29-2024 ambulatory Andrew Lloyd Facility:[facility] Start: 07-24-2024 End: 07-24-2024 Patient encounter procedure Aziza Phillips FINISH MACHINE TENDER-C -[facility] Work Phone: Start: 07-24-2024 End: 07-24-2024 Patient encounter status Aziza Phillips NP-C [facility] Start: 07-24-2024 End: 07-24-[address] Andrew Lloyd MD Work Phone: [facility] Work Phone: Start: 06-16-2024 End: 06-16-[address] Maryann Rocha MD -Laboratory [place] Work Phone: Start: 06-16-2024 End: 06-16-2024 ambulatory Maryann Rocha Facility:[facility] Start: 02-24-2023 End: 02-24-2023 ambulatory [facility] Work Phone: Start: 02-24-2023 End: 02-24-2023 Patient encounter procedure [facility]-Laboratory, Specimen Work Phone: Start: 02-06-2023 End: 02-06-2023 ambulatory [facility] Work Phone: Start: 02-06-2023 End: 02-06-2023 Patient encounter procedure [facility]-Laboratory, Specimen Work Phone: Start: 06-26-2022 Telephone encounter Andrew lopez MD Work Phone: [facility] Comment on above: Release Of Medical R [...] profile DTAP,TDAP,TD (7 - Td or Tdap) [facility] Start: 02-24-2023 Procedure [facility] Start: 02-24-2023 Thiamine measurement [facility] Start: 02-24-2023 Vitamin B6 measurement [facility] Start: 02-05-2023 Thiamine measurement [facility] Start: 02-05-2023 Vitamin B6 measurement [facility] Start: 10-27-2022 Influenza vaccination [facility] (Season Ended[facility] Start: 2022 CHLAMYDIA SCREENING (18-24) CHLAMYDIA SCREENING (18-24) [facility] Start: 2022 GC (GONORRHEA) SCREENING (18-24) GC (GONORRHEA) SCREENING (18-24) [facility] Start: 2022 HEPATITIS C SCREENING HEPATITIS C SCREENING [facility] Start: 2022 HIV SCREENING HIV SCREENING [facility] Start: 02-26-2022 DEPRESSION ASSESSMENT DEPRESSION ASSESSMENT [facility] Start: 2020 MENINGOCOCCAL CONJUGATE (2 - 2-dose series) MENINGOCOCCAL CONJUGATE (2 - 2-dose series) [facility] Start: 2018 PEDS TO ADULT TRANSITION ANNUAL ASSESSMENT PEDS TO ADULT TRANSITION ANNUAL ASSESSMENT [facility] Start: 2016 PEDS TO ADULT TRANSITION INITIAL DISCUSSION PEDS TO ADULT TRANSITION INITIAL DISCUSSION [facility] Start: 2015 HPV VACCINE (1 - 2-dose series) HPV VACCINE (1 - 2-dose series) [facility] Start: 2004 COVID-19 VACCINE (#1) COVID-19 VACCINE (#1) [facility] Retinol [Mass/volume ] in Serum or Plasma [facility] Thyroglobulin antibo dy measurement [facility] Thyroperoxidase Ab [Units/volume] in Serum or Plasma [facility] Transferrin [Mass/vo lume] in Serum or Plasma [facility] Immunizations Immunization Date Immunization Notes Care Provider Fa cility 04-29-2015 meningococcal polysaccharide (groups A, C, Y and W-135) diphtheria toxoid conjugate vaccine (MCV4P) Andrew Lloyd MD Work Phone: [facility] Work Phone: 04-29-2015 tetanus toxoid, redu ralph diphtheria toxoid, and acellular pertussis vaccine, adsorbed Andrew Lloyd MD Work Phone: [facility] Work Phone: 05-07-2009 diphtheria, tetanus toxoids and acellular pertussis vaccine Andrew Lloyd MD Work Phone: [facility] Work Phone: 05-07-2009 measles, mumps and rubella virus vaccine Andrew Lloyd MD Work Phone: [facility] Work Phone: 05-07-2009 poliovirus vaccine, inactivated Andrew Lloyd MD Work Phone: [facility] [facility] Work Phone: 05-07-2009 varicella virus vaccine Andrew Lloyd MD Work Phone: [facility] Work Phone: 03-04-2008 influenza virus vacc ine, live, attenuated, for intranasal use Andrew Lloyd MD Work Phone: [facility] Work Phone: 06-27-2005 diphtheria, tetanus toxoids and acellular pertussis vaccine Andrew Lloyd MD Work Phone: [facility] Work Phone: 06-27-2005 haemophilus influenz ae type b vaccine, HbOC conjugate Andrew Lloyd MD Work Phone: [facility] Work Phone: 03-31-2005 measles, mumps and rubella virus vaccine Andrew Lloyd MD Work Phone: [facility] Work Phone: 03-31-2005 pneumococcal conjuga te vaccine, 7 valent Andrew Lloyd MD Work Phone: [facility] Work Phone: 03-31-2005 varicella virus vaccine Andrew Lloyd MD Work Phone: [facility] Work Phone: 2004 influenza virus vacc ine, unspecified formulation Andrew Lloyd MD Work Phone: [facility] Work Phone: 2004 DTaP-hepatitis B and poliovirus vaccine Andrew Lloyd MD Work Phone: [facility] 2004 haemophilus influenz ae type b vaccine, HbOC conjugate Andrew Lolyd MD Work Phone: [facility] 2004 pneumococcal conjuga te vaccine, 7 valbogdan Lloyd MD Work Phone: [facility] 2004 DTaP-hepatitis B and poliovirus vaccine Andrew Lloyd MD Work Phone: [facility] Work Phone: 2004 haemophilus influenz ae type b vaccine, HbOC conjugate Andrew Lloyd MD Work Phone: [facility] Work Phone: 2004 pneumococcal conjuga te vaccine, 7 valbogdan Lloyd MD Work Phone: [facility] Work Phone: 2004 pneumococcal conjuga te vaccine, 7 valbogdan Lloyd MD Work Phone: [facility] Work Phone: 2004 DTaP-hepatitis B and poliovirus vaccine Andrew Lloyd MD Work Phone: [facility] Work Phone: 2004 haemophilus influenz ae type b vaccine, HbOC conjugate Andrew Lloyd MD Work Phone: [facility] Work Phone: Payers Date Payer Category Payer Unknown [id number] 2024 Self-pay [id number] 2024 Unknown [id number] Unknown [id number] Unknown [facility] [id number] Unknown [id number] Unknown [id number] Unknown [id number] Social History Date Type Detail Facility Start: 02-06-2011 End: 07-24-2024 Tobacco smoking status NHIS Never smoked tobacco [facility] Start: 02-06-2011 Tobacco use and exposure Smokeless tobacco non-user [facility] Start: 03-16-2020 Alcohol intake Current non-dr woolen suiting shrinker of alcohol (finding) [facility] Start: 2004 Sex Assigned At Not on file [facility] Start: 05-09-2017 Tobacco smoking stat us NHIS Unknown if ever smoked [facility] Start: 2004 Sex Assigned At Female [facility] Evaluation note 07-24-2024 Note Date & Type Note Facility 07-24-2024 Evaluation note Diagnosis Onset Date Resolution Encounter for routine gynecological examination noneactive July 24, 2024 9:42am [facility] Work Phone: Note 06-26-2022 Telephone Encounter - Teofilo Benton RN - 06/26/2022 2:56 PM EDT Note Date & Type Note Facility 06-26-2022 Miscellaneous Notes Formattin g of this note might be different from the original. 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 Teofilo Benton RN documented in this encounter [facility] Evaluation note Note Date & Type Note Facility Evaluation note No assessment information availa [facility] Work Phone: Evaluation note Note Date & Type Note Facility Evaluation note Diagnosis Onset Date Resolution Encounter for routine gynecological examination noneactive July 24, 2024 9:42am [facility] Work Phone: Reason for referral (narrative) Note Date & Type Note Facility Reason for referral (narrative) No reason for referral information available [facility] Work Phone: Summary Purpose Family History No Family History Records Found Relationship Condition Age at Onset Recorded Date/T aleja grandfather Cerebrovascular accident (CVA) Unknown aunt Malignant neoplasm of lung Unknown Advance Directives No Advanced Directives Records FoundNo Advanced Directives Records Found Chief Complaint and Reason for Visit Chief Complaint Admit Date SKIN June 16, 2024 4:3 9pm Annual (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 Andrew Lloyd MD Family Provider Active Dr. Andrew Lloyd MD Primary Care Provider Active Team Status: Inactive Member Role Status Dates Dr. Andrew Lloyd MD Primary Care Provider Active Cristine Holder FINISH MACHINE TENDER, FINISH MACHINE TENDER-C Attending Provider, Referri ng Provider Active Team Status: Inactive Member Role Status Dates Dr. Andrew Lloyd MD Primary Care Provider Active Cristine Holder FINISH MACHINE TENDER, FINISH MACHINE TENDER-C Attending Provider Active Team Status: Inactive Member [...] section and content) DATE CREATED AUTHOR 06/27/2022 [facility] DATE CREATED AUTHOR AUTHOR'S ORGANIZ ATION 10/09/2024 [facility] Goals (unrecognized section and content) Goals [...] BE BASED ON THE PRIMARY CLINICAL RECORDS. [facility]. provides no warranty or guarantee of the accuracy or completeness of information in this document.
--- NOTE | 2025-02-10 20:25 | PCM.TILTTABL ---
Staff Staff: Ignacia Chan and Rosa Ruby Summary Pre Test Resting HR: 60 Pre Test Resting BP: 107/78 Minimum Test HR: 57 Maximum Test HR: 100 Minimum Test BP: 89/57 Maximum Test BP: 114/73 Physician Tilt Table Report Patient's Physicians Primary Care Physician: Warren Mixon Indications/Diagnosis: POTS Procedure Comments: Patient was brought to the noninvasive lab in the postabsorptive nonsedated state. Informed consent was obtained. Initial EKG demonstrated sinus rhythm with a rate of 60 bpm. The patient was then put in the 70 degree head upright tilt position. Initial heart rate was 83 bpm with a blood pressure 170/78 mmHg. The patient was in this position for approximately 20 minutes. The maximum heart rate during this upright tilt was approximately 84 bpm. After this the patient was then put back in the supine position. The patient had complained of lightheadedness nausea and feeling weak during the test. The patient was then administered 0.4 mg of sublingual nitroglycerin and then put back in the 70 degree head upright tilt position. The heart rate went up from 88 to 100 bpm with a blood pressure going down to 89/57 mmHg with the patient feeling anxious warm and clammy. The test was then completed and the patient was laid supine. Summary: Head upright tilt table test with no diagnostic features of POTS. Mild postural orthostatic changes noted.
[2025-02-10 20:29] VITALS: BP 107/78; BP 114/73; BP 89/57
== END | disposition home or self-care (01) ==
LOC: CVS 09:12
PROVIDERS: PCP Family Medicine; Referring Provider Family Medicine; Visit Provider Family Medicine
DX: Z00.00 Encounter for general adult medical examination without abnormal findings (principal); G90.A Postural orthostatic tachycardia syndrome [POTS]
CPT/HCPCS: 36415; 80048; 81002; 82043; 82570; 84702; 85027; 93660; A4216